=== PATIENT | female | born 1945 | race Caucasian/White ===

== ENCOUNTER 2016-11-09 17:05 | Emergency (ER) | payer MEDICARE, MEDICAID ==
[~2016-11-09] VITALS: Ht 154.9 cm; Wt 120.7 kg
[~2016-11-09 17:05] MED LIST: ALAVERT10 M1 PO; ALLOPURINOL100 MG PO; ASPIR-TRIN325 MG PO; BACTRIM DS 8001 TAB PO; BENADRYL 25MG C25 MG PO; BONIVA150 MG PO; BUMETANIDE2 MG PO; CARAFATE1 GM PO; CENTRUM SILVER1 TA1 PO; COLACE GENERIC100 MG PO; COMBIVENT INH14.7 GM IN; CYMBALTA60 MG PO; DIAZEPAM10 MG PO; DIAZEPAM2 M1 PO; DIAZEPAM5 MG PO; DICYCLOMINE HCL20 MG PO; DOXEPIN25 MG PO; FIORICET 325 MG1 TAB PO; FIORICET1 CAP PO; FLEXERIL10 MG PO; GABAPENTIN TAB600 MG PO; GABAPENTIN300 M1 PO; GLYBURIDE/METFO1 TA1 PO; IMDUR 30MG. TAB30 MG PO; INSULIN AS100 UNITS/ SC; IRON TABLETS325 MG PO; KLOR-CON M2020 MEQ PO; LANTUS INS100 UNITS/ SC; LASIX 40MG. TAB40 MG PO; LEVOTHYROXINE0.15 MG PO; LIDODERM 5% PA1 EACH TD; LISINOPRIL5 MG PO; LOTRIMIN1% TP; LOVAZA1 GM PO; MECLIZINE12.5 MG PO; MECLIZINE25 MG PO; MELOXICAM15 MG PO; METHOCARBAMOL500 MG PO; METOCLOPRAMIDE H5 MG PO; METOCLOPRAMIDE10 M4 PO; METOPROLOL50 MG PO; MIRALAX17 GM/PACK PO; NITROSTAT 0.4M0.4 MG SL; NORVASC 10MG. T10 MG PO; OXYCODONE-ACETA1 TAB PO; PERCOCET 5/3251 EACH PO; PREMARIN V0.625 MG/G VG; PRILOSEC20 M1 PO; PROMETHAZINE D118 ML PO; PROMETHAZINE HC25 M1 PO; Prilosec20 MG PO; ROBITUSSIN120 ML/BOT PO; SIMVASTATIN40 MG PO; SULAR40 MG PO; VELTASSA OR; ZOLOFT100 MG PO; [UNRECOGNIZED DRUG - OTHER] PO
--- OUTSIDE RECORDS SUMMARY | 2016-11-09 17:28 | External Medical Summary Rpt ---
Author Author , GEREMIAS Gleason SHALOMGAEL Address Unknown Phone Care Team Providers Care Pathology Collector Name Role Phone [facility] Unavailable Unavailable PHARMACY, [facility] REX DE LA CRUZ, JONO, Unavailable Unavailable LY VÁZQUEZ, Unavailable Unavailable LY ROD III, WESLEY, Unavailable Unavailable CHARI NESS III [facility] Unavailable Unavailable SERVICE, [facility] BLAINE JAUREGUI, Unavailable Unavailable BLAINE JAUREGUI [facility] Unavailable Unavailable MEDICAL EQUIPMENT, [facility] Unavailable Unavailable LLC, [facility] ABDULAZIZ LOPEZ, Unavailable Unavailable ABDULAZIZ LOPEZ RONDAL E, Unavailable Unavailable ELSY [facility] Unavailable Unavailable INC, [facility] Unavailable Unavailable INC, [facility] SUZY DRISCOLL HARVEY, Unavailable Unavailable SUZY [facility] Unavailable Unavailable [facility], [facility] Unavailable [facility]available SUPPLY, [facility] SHRUTHI LIN JR Unavailable Unavailable Felipe, SHRUTHI LIN JR, G J, MELTON, Unavailable Unavailable JACKI PEARSON, Unavailable Unavailable JACKI CHAVARRIA STEPHEN R, Unavailable Unavailable LY ABEL, VIRAL, CHANDLER, Unavailable Unavailable [facility]AL [facility] Unavailable Unavailable AM[facility]ULANCE SERVICE, [facility], Unavailable Unavailable [facility] Unavailable LLC, [facility] Salome Benitez MD, Unavailable Unavailable DIRK Gomez MD, Unavailable Unavailable DIRK FRENCH JEFFREY L, Unavailable Unavailable FEROZ PAIGE BABATUNDE O, Unavailable Unavailable RUPERTO WILKSATUNDE O [facility] Unavailable Unavailable HOSPITAL, [facility] Unavailable Unavailable [facility], [facility], Unavailable Unavailable [facility] FEROZ JIN, Unavailable Unavailable FEROZ JIN Purpose Continuity of Care Document - 06-26-2007 through 2016 Problems Code Diagnosis DOS Provider Status 2449 UNSPECIFIED 05-12-2009 [facility] [place] [address] DIAB W/O 04-28-2009 [facility] TYPE [facility] II/UNS NOT PSC STATED UNCNTRL 4660 ACUTE 04-28-2009 [facility] BRONCHITIS [facility] PSC 515 POSTINFLAMM 04-28-2009 [facility] FIBROSIS 21014 SHORTNESS 04-28-2009 [facility] OF BREATH [facility] PSC 7931 NONSPEC 04-28-2009 [facility] EXAM HOSPITAL BODY STRUCT LUNG FIELD 96817 OT NONSPC 04-28-2009 [facility]N F[facility]NG [facility] RAD&OTH EXM PSC BODY STRUCTURE 7862 COUGH 04-20-2009 [facility] PSC 4928 OTHER 03-22-2009 [facility] 496 CHRONIC 03-22-2009 [facility]AY [facility] NEC 4019 UNSPECIFIED 03-16-2009 [facility] N 5990 URINARY 03-16-2009 [facility] SITE NOT SPECIFIED 7226 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-16-2009 [facility] N [facility]ICAL INTERVERTEB GROUP RAL DISC SITE UNSPEC 7291 UNSPECIFIED 02-04-2009 [facility] MYOSITIS MED 58654 OTHER 02-04-2009 [facility] FATIGUE INTERNAL MED 75797 OTHER CHEST 02-04-2009 [facility] PAIN [facility] INTERNAL MED 07839 MORBID 01-29-2009 [facility] 490 BRONCHITIS 01-29-2009 [facility] ACUTE OR PROF SERV CHRONIC 86805 ESOPHAGEAL 01-29-2009 [facility]UX [facility] 5859 CHRONIC 01-29-2009 [facility] UNSPECIFIED ASSOCIATES 33302 OTHER 01-29-2009 [facility] [place] [address] CHEST PAIN 01-29-2009 [facility] PROF SERV 7906 OTHER 01-29-2009 [facility] BLOOD AMBULANCE CHEMISTRY SERVICE V5867 LONG-TERM 01-29-2009 [facility] USE OF [facility] INSULIN INC V5869 LONG-TERM 01-29-2009 [facility] (CURRENT) [facility] USE OF HOSPITAL OTHER PROF SERV MEDICATIONS 7245 UNSPECIFIED 01-19-2009 [facility] 77004 DIAB W/O 01-05-2009 DIABETES COMP TYPE I CARE CLUB [JUV] NOT LLC STATED UNCNTRL 32110 GENERALIZED 01-05-2009 [facility] OSTEOARTHRO LLC SIS UNSPECIFIED SITE 45262 OTHER 12-19-2008 [facility]RONIC [facility] PAIN INC 46672 NAUSEA WITH 12-19-2008 [facility] VOMITING [facility] INTERNAL MED 2766 FLUID 12-18-2008 [facility] 7336 TIETZES 12-18-2008 [facility] DIS[facility] V0481 NEED 12-18-2008 [facility] PROPHYLACTI [facility]ICAL C GROUP VACCINATION &INOCULATIO N FLU 22144 DIAB 11-19-2008 [facility] W/NEURO MEDICAL MANIFESTS GROUP TYPE II/UNS NOT UNCNTRL 3572 POLYNEUROPA 11-19-2008 [facility] THY IN MEDICAL DIABETES GROUP 6929 CONTACT 10-17-2008 [facility] DERMATITIS& MEDICAL OTHER GROUP ECZEMA DUE UNSPEC CAUSE 37689 PAIN IN 08-19-2008 [facility] JOINT, MEDICAL SHOULDER GROUP REGION 52348 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 2724 OTHER AND 06-05-2008 [facility] UNSPECIFIED [facility] INC HYPERLIPIDE NICHOLAS 5939 UNSPECIFIED 06-05-2008 [facility] DISORDER [employer] AND URETER 28860 PRECORDIAL 06-05-2008 [facility] PAIN [employer] 82142 OBSTRUCTIVE 02-08-2008 [facility] BRONCHITIS WITHOUT EXACERBAT 17903 OBST 02-08-2008 [facility] BRONCHITIS INTERNAL W/ACUTE MED BRONCHITIS 06385 WHEEZING 02-07-2008 [employer] 89299 MIGRAINE 01-26-2008 [facility] UNSP W/O FANCRU INTRACT W/O [employer] STATUS MIGRAINOSUS 7840 HEADACHE 01-26-2008 [facility] 94477 OBSTRUCTIVE 09-24-2007 [facility] 3540 CARPAL 08-07-2007 [facility] T[facility]EL [facility] SYNDROME [facility] 4619 ACUTE 08-07-2007 [facility] SINUSITIS, MEDICAL UNSPECIFIED GROUP 4779 ALLERGIC 08-07-2007 [facility] RHINITIS MEDICAL CAUSE GROUP UNSPECIFIED 96682 OSTEOARTHRO 08-07-2007 [facility] SIS UNSPEC MEDICAL WHETHER GROUP GEN/LOC LOWER LEG 412 OLD 06-28-2007 [facility]OCARDIAL [facility] INFARCTION INC 51538 COR 06-28-2007 [facility] UNSPEC INC TYPE VESSEL [place] T 33340 OSTEOARTHRO 06-28-2007 [facility] S UNSPEC [facility]OS[facility] WHETHER INC GEN/LOC UNSPEC SITE [id number] Type II [place] diabetes [facility] mellitus - Hospital poor control 244.9 Hypothyroid [facility] [id number] Obesity [facility] 530.81 Gastroesoph [place] ageal [facility] reflux Hospital disease [id number] Active [facility] 558.9 Gastroenter [place] itis [facility] 708.9 Acute [place] urticaria [facility] 780.57 Sleep apnea [facility] 786.50 [id number] Chronic [facility] D50.0 Iron deficiency anemia secondary to blood loss (chronic) D50.9 Iron deficiency anemia, unspecified D64.9 Anemia, unspecified E03.9 Hypothyroid ism, unspecified E08.42 Diabetes mellitus due to underlying condition with diabetic polyneuropa thy E11.21 Type 2 diabetes mellitus with diabetic nephropathy E11.3213 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, bilateral E11.40 Type 2 diabetes mellitus with diabetic neuropathy, unspecified E11.49 Type 2 diabetes mellitus with other diabetic neurologica l complicatio n E11.65 TYPE 2 DIABETES MELLITUS WITH HYPERGLYCEM IA E11.8 Type 2 diabetes mellitus with unspecified complicatio ns E11.9 Type 2 diabetes mellitus without complicatio ns E55.9 Vitamin D deficiency, unspecified E78.2 Mixed hyperlipide nicholas E87.5 HYPERKALEMI A F41.1 Generalized anxiety disorder G47.00 Insomnia, unspecified G89.29 Other chronic pain 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 H01.012 Ulcerative blepharitis right lower eyelid H01.014 Ulcerative blepharitis left upper eyelid H01.015 Ulcerative blepharitis left lower eyelid H25.813 Combined forms of age-related cataract, bilateral H52.7 Unspecified disorder of refraction I10 Essential (primary) hypertensio n I20.0 Unstable angina I24.9 ACUTE ISCHEMIC HEART DISEASE, UNSPECIFIED I50.33 Acute on chronic diastolic (congestive ) heart failure J18.9 PNEUMONIA, UNSPECIFIED ORGANISM J44.9 Chronic obstructive pulmonary disease, unspecified J45.909 Unspecified asthma, uncomplicat ed K29.70 GASTRITIS, UNSPECIFIED , WITHOUT BLEEDING K56.60 Unspecified intestinal obstruction K59.01 Slow transit constipatio n K59.09 Other constipatio n K90.9 Intestinal malabsorpti on, unspecified M17.0 Bilateral primary osteoarthri tis of knee M25.511 Pain in right shoulder M25.512 Pain in left shoulder M25.561 Pain in right knee M25.562 Pain in left knee M54.41 Lumbago with sciatica, right side M54.42 Lumbago with sciatica, left side N18.3 Chronic kidney disease, stage 3 (moderate) N18.9 CHRONIC KIDNEY DISEASE, UNSPECIFIED N28.9 DISORDER OF KIDNEY AND URETER, UNSPECIFIED N39.0 URINARY TRACT INFECTION, SITE NOT SPECIFIED R07.9 CHEST PAIN, UNSPECIFIED R10.9 UNSPECIFIED ABDOMINAL PAIN R11.2 Nausea with vomiting, unspecified R13.10 Dysphagia, unspecified R19.4 Change in bowel habit R55 SYNCOPE AND COLLAPSE R79.89 OTHER SPECIFIED ABNORMAL FINDINGS OF BLOOD CHEMISTRY R80.9 Proteinuria , unspecified 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 Allergies, Adverse Reactions, Alerts Type Allergy to substance Adverse Reaction to Substance Substance Reaction Severity NO KNOWN ALLERGIES Unknown Unknown Medications Na ND Rx Da Fi Fi Am Da Di Ph RX Ph St me C No te ll ll ou ys ag ar # ys at rm s nt no ma ic us Or Da si cy ia de te s n re d ON 00 08 0 No DA 64 -1 NS 16 0- Lo ET 08 20 ng RO 02 13 er N 5 HC Ac L ti 4 ve MG /2 ML AL UT 00 08 0 No OM 64 -1 ET 11 0- Lo RAMAN 49 20 ng ZI 53 13 er NE 5 Ac 25 ti ve MG /M L AM PU L TY 50 08 0 No LE 58 -1 NO 00 0- Lo L 45 20 ng EX 10 13 er -S 3 TR Ac ti 50 ve [address] ET FS 08 0 No -1 BL 0- Lo OO 20 ng D 13 er [place] Ac R ti ve HU 00 08 0 No MA 00 -1 LO 27 0- Lo G 51 20 ng 10 01 13 er 0 7 UN Ac IT ti S/ ve ML AL AM 51 08 0 No LO 07 -1 DI 90 0- Lo PI 45 20 ng NE 22 13 er 0 BE Ac SY ti LA ve TE 10 MG TA B FU 51 08 0 No RO 07 -1 SE 90 0- Lo PA 07 20 ng DE 32 13 er 0 40 Ac ti MG ve TA BL ET Me 68 08 0 No to 08 -1 cl 40 0- Lo op 09 20 ng ra 10 13 er mi 1 de Ac ti 10 ve MG Ta bl et ME 51 08 0 No TO 07 -1 UT 90 0- Lo OL 80 20 ng OL 12 13 er 0 TA Ac RT ti RA ve TE 50 MG TA B SY 00 08 0 No NT 07 -1 HR 47 0- Lo OI 06 20 ng D 91 13 er 15 1 0 Ac MC ti G ve TA BL ET PA 51 08 0 No NT 07 -1 OP 90 0- Lo RA 05 20 ng ZO 12 13 er LE 0 Ac SO ti D ve DR 40 MG TA B SO 00 08 0 No DI 40 -1 UM 97 0- Lo 98 20 ng CH 30 13 er LO 9 RI Ac DE ti ve 0. 9% SO SAMANTHA TI ON Sa 63 08 1 No li 80 -0 ne 70 9- Lo 10 20 ng Fl 07 13 er us 5 h Ac 10 ti ML ve Sy ri ng e Immunization Name Date Rout CVX Reac Dose Comm Prov Is Faci e tion ent ider Refu lity Give sed n IIV3 09-0 141 LUIS No [facility] 3-20 L, IT VACC 09 RICHARD MEDI INE L ANDREW SPLI GROU T P VIRU S 0.5 ML DOSA GE IM USE Vital Signs 11-24-2012 13:30 Name Value Interpretat Reference Comment ion Range Body 98.5 [degF] Temperature BP 56 mm[Hg] Diastolic BP Systolic 159 mm[Hg] Heart 82 /min Rate/Pulse Respiratory 22 /min Rate 11-24-2012 08:00 Name Value Interpretat Reference Comment ion Range O2% 96 % 11-24-2012 02:45 Name Value Interpretat Reference Comment ion Range Height 154.94 cm Weight 117.227 kg Measured 11-23-2012 22:23 Name Value Interpretat Reference Comment ion Range Body 99.1 [degF] Temperature BP 77 mm[Hg] Diastolic BP Systolic 163 mm[Hg] Heart 131 /min Rate/Pulse O2% 98 % Respiratory 16 /min Rate Weight 0 [oz_av] Measured 06-14-2012 18:35 Name Value Interpretat Reference Comment ion Range BP 82 mm[Hg] Diastolic BP Systolic 116 mm[Hg] Heart 67 /min Rate/Pulse O2% 98 % Respiratory 20 /min Rate 06-14-2012 17:52 Name Value Interpretat Reference Comment ion Range BP 64 mm[Hg] Diastolic BP Systolic 136 mm[Hg] 06-14-2012 17:09 Name Value Interpretat Reference Comment ion Range Heart 70 /min Rate/Pulse O2% 96 % Respiratory 20 /min Rate Results Labs Lab Lab Date Result Refere Interp Status Commen Order Detail nces retati t Range on Glucose BldC Glucomtr-nc (11-24-2012 11:58) Glucose 08-10-2 187 70-110 complet BldC 013 mg/dl ed Glucomt 11:58 r-mCnc Glucose BldC Glucomtr-nc (11-24-2012 06:13) Glucose 08-10-2 308 70-110 High complet BldC 013 mg/dl alert ed Glucomt 06:13 r-mCnc URINALYSIS/COMPLETE (11-24-2012 02:20) URINE -10-2 YELLOW YELLOW complet COLOR 013 ed 02:20 URINE -10-2 CLEAR CLEAR complet APPEARA 013 ed NCE 02:20 URINE 10-2 2+ NEG complet GLUCOSE 013 ed - 02:20 DIPSTIC K URINE 10-2 NEGATIV NEG complet BILIRUB 013 E ed IN - 02:20 DIPSTIC K URINE 10-2 NEGATIV NEG complet KETONE 013 E mg/dL ed 02:20 URINE 10-2 1.025 1.005-1 complet SPECIFI 013 UNK .030 ed C 02:20 GRAVITY URINE 10-2 NEGATIV NEG complet BLOOD 013 E ed 02:20 URINE -10-2 6.0 UNK 5.0-8.5 complet PH 013 ed 02:20 URINE 10-2 1+ NEG complet PROTEIN 013 mg/dL ed - 02:20 DIPSTIC K URINE 10-2 0.2 NEG complet UROBILI 013 E.U./dL ed NOGEN - 02:20 DIPSTIC K URINE 08-10-2 NEGATIV NEG complet NITRATE 013 E ed - 02:20 DIPSTIC K URINE 1+ NEG complet LEUK 013 ed ESTERAS 02:20 E URINE 10-20 O complet WBC 013 wbc/hpf ed 02:20 URINE 10-20 0-5 complet SQUAMOU 013 #/hpf ed S CELLS 02:20 URINE TRACE O complet BACTERI 013 ed A 02:20 URINE TRACE NONE complet AMORPH 013 ed SEDIMEN 02:20 T COMPREHENSIVE METABOLIC PANEL (11-23-2012 23:30) Glucose 369 74-106 complet 013 mg/dL ed Bld-mCn 23:30 c BUN 25 7-18 complet Bld-mCn 013 mg/dL ed c 23:30 Creat 1.9 0.6-1.0 complet SerPl-m 013 mg/dL ed Cnc 23:30 ESTIMAT 54 50-200 complet ED 013 ML/MIN ed CREATIN 23:30 INE CLEARAN CE GFR 26 59- complet (ESTIMA 013 ML/MIN ed MARLYN) 23:30 Sodium 136 136-145 complet SerPl-s 013 mmoL/L ed Cnc 23:30 Potassi 4.0 3.5-5.1 complet um 013 mmoL/L ed SerPl-s 23:30 Cnc Chlorid 95 98-107 complet e 013 mmoL/L ed SerPl-s 23:30 Cnc CO2 25 21.0-32 complet SerPl-s 013 mmoL/L .0 ed Cnc 23:30 Calcium 9.1 8.5-10. complet 013 mg/dL 1 ed SerPl-m 23:30 Cnc Prot 8.0 6.4-8.2 complet SerPl-m 013 gm/dL ed Cnc 23:30 Albumin 3.5 3.4-5.0 complet 013 gm/dL ed SerPl-m 23:30 Cnc Globuli 4.5 1.3-3.2 complet n 013 gm/dL ed Ser-mCn 23:30 c Albumin 08-09-2 0.8 UNK 1.1-1.8 complet /Glob 013 ed SerPl-m 23:30 Rto Bilirub 0.3 0.2-1.0 complet 013 mg/dL ed SerPl-m 23:30 Cnc AST 25 U/L 15-37 complet SerPl-c 013 ed Cnc 23:30 ALT 38 U/L 30-65 complet SerPl-c 013 ed Cnc 23:30 ALP 152 U/L 50-136 complet SerPl-c 013 ed Cnc 23:30 CBC with AUTO DIFF (11-23-2012 23:30) WBC # 09-2 11.5 4.8-10. complet Bld 013 K/MM3 8 ed Auto 23:30 RBC # 11-23-2 4.28 4.2-5.4 complet Bld 013 M/mm3 ed Auto 23:30 Hgb 12.5 12.2-16 complet Bld-mCn 013 g/dL .2 ed c 23:30 Hct Fr 39.1 % 37.0-47 complet Bld 013 .0 ed 23:30 MCV RBC 91.5 fl 82.2-97 complet 013 .8 ed 23:30 MCH RBC 11-23- 29.1 pg 27-31.2 complet Qn 013 ed Auto 23:30 MEAN 31.8 31.8-35 complet CORPUSC 013 g/dl .4 ed ULAR 23:30 HGB CONC RDW RBC 15.0 % 11.5-17 complet Auto 013 .5 ed 23:30 Platele 346 142-424 complet t Bld 013 K/mm3 ed Ql 23:30 Manual MEAN 7.3 fl 7.4-10. complet PLATELE 013 4 ed T 23:30 VOLUME Granulo 74.7 % 37.0-80 complet cytes 013 .0 ed Fr Bld 23:30 Auto LYMPH % 20.0 % 10-50.0 complet 013 ed 23:30 Monocyt 4.4 % 1.7-9.3 complet es Fr 013 ed Bld 23:30 Auto Eosinop 08-09-2 0.8 % 0.1-12. complet hil Fr 013 0 ed Bld 23:30 Auto Basophi 08-09-2 0.1 % 0.1-2.0 complet ls Fr 013 ed Bld 23:30 Auto Granulo --2 8.6 1.8-7.8 complet cytes # 013 K/mm3 ed Bld 23:30 Auto Lymphoc --2 2.3 0.7-4.5 complet ytes Fr 013 K/mm3 ed Bld 23:30 Auto Monocyt 08-09-2 0.5 0.1-1.0 complet es # 013 K/mm3 ed Bld 23:30 Auto Eosinop -09-2 0.1 0.0-0.4 complet hil # 013 K/mm3 ed Bld 23:30 Auto Basophi 08-09-2 0.0 0-0.2 complet ls # 013 K/MM3 ed Bld 23:30 Auto BASIC METABOLIC PANEL (06-14-2012 16:55) Glucose 160 74-106 complet 013 mg/dL ed Bld-mCn 16:55 c BUN 21 7-18 complet Bld-mCn 013 mg/dL ed c 16:55 Creat 1.5 0.6-1.0 complet SerPl-m 013 mg/dL ed Cnc 16:55 ESTIMAT 70 50-200 complet ED 013 ML/MIN ed CREATIN 16:55 INE CLEARAN CE GFR 35 59- complet (ESTIMA 013 ML/MIN ed MARLYN) 16:55 Sodium 141 136-145 complet SerPl-s 013 mmoL/L ed Cnc 16:55 Potassi 4.4 3.5-5.1 complet um 013 mmoL/L ed SerPl-s 16:55 Cnc Chlorid 103 98-107 complet e 013 mmoL/L ed SerPl-s 16:55 Cnc CO2 31 21.0-32 complet SerPl-s 013 mmoL/L .0 ed Cnc 16:55 Calcium 9.0 8.5-10. complet 013 mg/dL 1 ed SerPl-m 16:55 Cnc CBC with AUTO DIFF (06-14-2012 16:55) WBC # 02-28-2 9.2 4.8-10. complet Bld 013 K/MM3 8 ed Auto 16:55 RBC # 02-28-2 4.16 4.2-5.4 complet Bld 013 M/mm3 ed Auto 16:55 Hgb --2 12.1 12.2-16 complet Bld-mCn 013 g/dL .2 ed c 16:55 Hct Fr 06-14-2 38.2 % 37.0-47 complet Bld 013 .0 ed 16:55 MCV RBC 2 91.8 fl 82.2-97 complet 013 .8 ed 16:55 MCH RBC 2 29.1 pg 27-31.2 complet Qn 013 ed Auto 16:55 MEAN 2 31.7 31.8-35 complet CORPUSC 013 g/dl .4 ed ULAR 16:55 HGB CONC RDW RBC 06-14-2 15.9 % 11.5-17 complet Auto 013 .5 ed 16:55 Platele 06-14-2 331 142-424 complet t Bld 013 K/mm3 ed Ql 16:55 Manual MEAN 2 7.8 fl 7.4-10. complet PLATELE 013 4 ed T 16:55 VOLUME Granulo 06-14-2 66.9 % 37.0-80 complet cytes 013 .0 ed Fr Bld 16:55 Auto LYMPH % 06-14-2 26.8 % 10-50.0 complet 013 ed 16:55 Monocyt 06-14-2 4.2 % 1.7-9.3 complet es Fr 013 ed Bld 16:55 Auto Eosinop --2 1.7 % 0.1-12. complet hil Fr 013 0 ed Bld 16:55 Auto Basophi --2 0.4 % 0.1-2.0 complet ls Fr 013 ed Bld 16:55 Auto Granulo 02-28-2 6.2 1.8-7.8 complet cytes # 013 K/mm3 ed Bld 16:55 Auto Lymphoc -28-2 2.5 0.7-4.5 complet ytes Fr 013 K/mm3 ed Bld 16:55 Auto Monocyt --2 0.4 0.1-1.0 complet es # 013 K/mm3 ed Bld 16:55 Auto Eosinop 06-14-2 0.2 0.0-0.4 complet hil # 013 K/mm3 ed Bld 16:55 Auto Basophi 28-2 0.0 0-0.2 complet ls # 013 K/MM3 ed Bld 16:55 Auto Procedures Procedure DOS Code Location Performer Comment COLLECTIO [address] N [facility] 0 [facility] VENIPUNCT MEDICALCE MEDICALCE URE NTER NTER BASIC [address] METABOLIC 0 ALEX ALEX PANEL CALCIUM MEDICAL[place] [address] FREE 0 ALEX ALEX THYROXINE [place] [address] THYROID 0 ALEX ALEX STIMULATI NG MEDICALCE MEDICALCE HORMONE NTER NTER TSH BLOOD [address] COUNT 0 ALEX ALEX COMPLETE AUTO&AUTO MEDICALCE MEDICALCE DIFRNTL NTER NTER WBC COLLECTIO [address] N VENOUS 0 [facility] VENIPUNCT URE CT THORAX 06554 RADIOLOGY SCHMITTER 0 FEROZ W/DANA ASSOCIATE L T S [facility] MATERIAL CREATININ [address] E BLOOD 0 [facility] RADIOLOGI 69772 RADIOLOGY [place] ABEL EXAM 0 LY R CHEST 2 ASSOCIATE VIEWS S PSC FRONTAL&L ATERAL O2 CONC 1 E1390 PULMONARY PULMONARY DEL PORT 9 [facility]ERS PARTNERS 85%/>02 LLC LLC CONC AT [facility] FLW RATE PRTBLE E0431 PULMONARY PULMONARY GASEOUS 9 PARTNERS PARTNERS O2 SYS LLC LLC RENT; FLWMTR HUMIDFR&M ASK INJECTION J0696 [facility], 9 MEDICAL VIRAL CEFTRIAXO GROUP NE SODIUM PER 250 MG THERAPEUT 57610 [facility] CHANDLER, IC 9 MEDICAL VIRAL PROPHYLAC GROUP TIC/DX INJECTION SUBQ/IM O2 CONC 1 11-06-200 E1390 PULMONARY PULMONARY DEL PORT 9 PARTNERS PARTNERS 85%/>[address] [facility] CONC AT [facility] FLW RATE THERAPEUT [address] ST ARTEAGA, IC 9 ALEX VIRAL PROPHYLAC TIC/DX PHYSICIAN INJECTION S SUBQ/IM GLUC BLD 18992 [facility] G[facility]IA GLUC MNTR 9 [facility]OSP DEV INC INC CLEARED FDA SPEC HOME USE PRESSURIZ 58457 [facility] GARCIA ED/NONPRE 9 [facility] SSURIZED INC INC INHALATIO N TREATMENT NONINVASI 91512 [facility]IA VE 9 [facility] HOSP EAR/PULSE INC INC OXIMETRY SINGLE DETER NONINVASI 92822 [facility] GARCIA VE 9 [facility] EAR/PULSE INC INC OXIMETRY SINGLE DETER THERAPEUT 29033 [facility] GARCIA IC 9 [facility] HOSP INJECTION INC [place] [address] [facility] GARCIA INFUSION 9 [facility] HOSP THERAPY/P INC INC ROPHYLAXI S /DX 1ST TO 1 HR PRESSURIZ 10362 [facility] GARCIA ED/NONPRE 9 [facility] SSURIZED INC INC INHALATIO N TREATMENT SMR PRIM 64576 [facility] GARCIA SRC 9 [facility] HOSP GRAM/GIEM INC INC SA STAIN BCT FUNGI/[place] [address] [facility] G[facility] TROPONIN 9 [facility] HOSP QUANTITAT INC INC COLE BLOOD 83136 [facility] GARCIA COUNT 9 [facility] COMPLETE INC INC AUTO&AUTO DIFRNTL WBC GLUC BLD 12010 [facility] GARCIA GLUC MNTR 9 [facility] DEV INC INC CLEARED FDA SPEC HOME USE ECG 12389 [facility] RODRIGUEZMISusy ROUTINE 9 [facility] SHRUTHI W/LEAST PROF SERV 12 LDS I&R ONLY CUL BACT 53075 [facility] GARCIA XCPT 9 [facility] HOSP URINE INC INC BLOOD/[place] [address] [facility] GARCIA INFUSION 9 [facility] HOSP THERAPY INC INC PROPHYLAX IS/DX EA HOUR CREATINE 46256 [facility] GARCIA KINASE MB 9 [facility] FRACTION INC INC ONLY SPUTUM 51254 [facility] GARCIA OBTAINING 9 [facility] SPEC INC INC AEROSOL INDUCED TX SPX ECG 84841 RAD[facility] GARCIA ROUTINE 9 [facility] ECG INC INC W/LEAST 12 LDS TRCG ONLY W/O I&R BASIC 87074 RAD[facility] GARCIA METABOLIC 9 [facility] PANEL INC INC CALCIUM TOTAL CREATINE 00478 RAD[facility] GARCIA KINASE 9 [facility]OS[facility] TOTAL INC INC COLLECTIO 08019 [facility] N VENOUS 9 [facility] BLOOD INC INC VENIPUNCT URE CREATINE 80774 [facility] KINASE 9 [facility] TOTAL INC INC BASIC 22552 [facility] G[facility] METABOLIC 9 [facility] PANEL INC INC CALCIUM TOTAL RADIOLOGI 84797 [facility] Cat[facility] JAUREGUI 9 MEDICAL BLAINE EXAMINATI IMAGING ON CHEST ASSOCIATE SINGLE S VIEW FRONTAL CREATINE 48011 RADHA GARCIA KINASE MB 9 [facility] FRACTION INC INC ONLY ECG 81114 RADHA GARCIA ROUTINE 9 [facility] ECG INC INC W/LEAST 12 LDS TRCG ONLY W/O I&R IAADI 46613 RAD[facility] GARCIA INFLUENZA 9 [facility] B VIRUS INC INC IAADI 28515 RAD[facility] G[facility] INFFLUENZ 9 [facility] A A VIRUS INC INC HOSPITAL [id number] RAD[facility] GARC[facility] OBSERVATI 9 [facility] ON INC INC SERVICE PER HOUR AMB A0427 [facility] SERVICE 9 [facility] AMB[facility] AMBULANCE EMERGENCY SERVICE SERVICE TRANSPORT LEVEL 1 ECG 34473 TOMASZ HORVATHEY, ROUTINE 9 EMERGENCY ABDULAZIZ S ECG SERVICES W/LEAST 12 LDS ASSOCIATE [place] [address] RAD[facility] GARCIA TROPONIN 9 [facility] QUANTITAT INC INC COLE NATRIURET 14135 [facility] G[facility] IC 9 [facility] PEPTIDE INC INC BLOOD 91314 RAD[facility] GARCIA COUNT 9 [facility] COMPLETE INC INC AUTO&AUTO DIFRNTL WBC GROUND A0425 [facility] [place]ISS MILEAGE 9 CO CO PER AMBULANCE AMBULANCE STATUTE SERVICE SERVICE MILE PRTBLE E0431 PULMONARY PULMONARY GASEOUS 9 PARTNERS PARTNERS [employer] RENT; FLWMTR HUMIDFR&M ASK O2 CONC 1 E1390 PULMONARY PULMONARY DEL PORT 9 PARTNERS PARTNERS 85%/>02 LLC [facility] CONC AT [facility] [place] [address] FREE 9 ALEX ALEX THYROXINE [place] [address] THYROID 9 ALEX ALEX STIMULATI NG MEDICALCE MEDICALCE HORMONE NTER NTER TSH HEMOGLOBI [address] N 9 ALEX ALEX GLYCOSYLA MARLYN A1C MEDICALCE MEDICALCE NTER NTER BLD GLU A4253 [facility] TEST/REAG 9 MEDICAL MEDICAL T STRIPS SUPPLY SUPPLY HOME BLD GLU MON-50 NORMAL A4256 DIABETES DIABETES LOW AND 9 [facility] CALIBRATO R SOLUTION/ CHIPS LANCETS A4259 DIABETES DIABETES PER BOX 9 CARE CL[facility] CARE CL[facility] OF 100 [facility] LLC BLD GLU A4253 DIABETES DIABETES TEST/REAG 9 C[facility] CARE CLUB T STRIPS [facility] LLC HOME BLD GLU MON-50 REPL ANGELIC A4235 DIABETES DIABETES LITHIUM 9 CARE CLUB CARE CLUB MED NECES LLC LLC CHANTAL BG MON OWN PT EA OBSERVATI [id number] [place] ON CARE 9 [facility], DISCHARGE INTERNAL SHRUTHI [facility] GLUC BLD 41054 RADHA GARCIA GLUC MNTR 9 [facility] DEV INC INC CLEARED FDA SPEC HOME USE NONINVASI 39338 RADHA GARCIA VE 9 [facility] EAR/PULSE INC INC OXIMETRY SINGLE DETER PRESSURIZ 90411 RADHA GARCIA ED/NONPRE 9 [facility] SSURIZED INC INC INHALATIO N TREATMENT PRESSURIZ 68696 RADHA GARCIA ED/NONPRE 9 [facility] SSURIZED INC INC INHALATIO N TREATMENT BLOOD 58474 RADHA GARCIA COUNT 9 [facility] COMPLETE INC INC AUTO&AUTO DIFRNTL WBC THERAPEUT 12463 RADHA RADHA IC 9 [facility] INJECTION INC INC IV PUSH EACH NEW DRUG INITIAL 12317 [place] OBSERVATI 9 [facility]/DAY MED 30 [place] [address] RADHA ELIASON TROPONIN 9 [facility] HOSP QUANTITAT INC INC COLE ECG 74361 RADHA LIN ROUTINE 9 [facility] ECG [facility]OSP[facility] W/LEAST PROF SERV 12 LDS I&R ONLY GLUC BLD 02411 RADHA ELIASON GLUC MNTR 9 [facility] DEV INC INC CLEARED FDA SPEC HOME USE HOSPITAL [id number] RADHA GARCIA OBSERVATI 9 [facility] HOSP ON INC INC SERVICE PER HOUR THER 54288 RADHA GARCIA PROPH/DX 9 [facility] HOSP NJX IV INC INC PUSH SINGLE/1S T SBST/DRUG ECG 57659 RADHA GARCIA ROUTINE 9 [facility] ECG INC INC W/LEAST 12 LDS TRCG ONLY W/O I&R CREATINE 79078 RADHA GARCIA KINASE MB 9 [facility] FRACTION INC INC ONLY BASIC 31983 RADHA GARCIA METABOLIC 9 [facility] HOSP PANEL INC INC CALCIUM TOTAL RADIOLOGI 42664 [place] Catrachita JAUREGUI 9 MEDICAL BLAINE EXAMINATI IMAGING ON CHEST ASSOCIATE SINGLE S VIEW FRONTAL COLLECTIO 36822 RADHA GARCIA N VENOUS 9 [facility] BLOOD INC INC VENIPUNCT URE CREATINE 52585 RADHA GARCIA KINASE 9 [facility] TOTAL INC INC BILIRUBIN [address] [facility] 9 [facility] 13506 [place] ARTEAGA, ROUTINE 9 MEDICAL VIRAL ECG GROUP W/LEAST 12 LDS W/I&R COLLECTIO 37399 [facility] ARTEAGA, N VENOUS 9 MEDICAL VIRAL BLOOD GROUP VENIPUNCT URE COMPREHEN [address] SIVE 9 ALEX ALEX METABOLIC PANEL MEDICALCE MEDICALCE NTER NTER THERAPEUT 14636 CARLOS CHANDLER, IC 9 MEDICAL VIRAL PROPHYLAC GROUP TIC/DX INJECTION SUBQ/IM ADMINISTR G0008 CARLOS ARTEAGA, ATION OF 9 MEDICAL VIRAL INFLUENZA GROUP VIRUS VACCINE INJECTION J1040 CARLOS ARTEAGA, 9 MEDICAL VIRAL METHYLPRE GROUP DNISOLONE ACETATE 80 MG RADIOLOGI 35984 RADIOLOGY GROVER C EXAM 9 III, CHEST 2 ASSOCIATE CHARI GLOVER S [facility] FRONTAL&[place] [address] THYROID 9 ALEX ALEX STIMULATI NG MEDICALCE MEDICALCE HORMONE NTER NTER TSH IIV3 10227 [facility], VACCINE 9 MEDICAL VIRAL SPLIT GROUP VIRUS 0.5 ML DOSAGE IM USE ELECTRIC E0215 DIABETES DIABETES HEAT PAD 9 CARE CLUB CARE [facility] [employer] THERAPEUT 80763 CARLOS ARTEAGA, IC 9 MEDICAL VIRAL PROPHYLAC GROUP TIC/DX INJECTION SUBQ/IM SPRING-PO A4258 LIBERTY LIBERTY WERED 9 MEDICAL STUDIO ARTIST SUPPLY SUPPLY FOR LANCET EACH BLD GLU A4253 LIBERTY LIBERTY TEST/REAG 9 MEDICAL MEDICAL T STRIPS SUPPLY SUPPLY HOME BLD GLU MON-50 NORMAL A4256 LIBERTY LIBERTY LOW AND 9 MEDICAL MEDICAL HIGH SUPPLY SUPPLY CALIBRATO R SOLUTION/ CHIPS BLOOD [address] COUNT 9 ALEX ALEX COMPLETE AUTO&AUTO MEDICALCE MEDICALCE DIFRNTL NTER NTER WBC HEMOGLOBI [address] N 9 ALEX ALEX GLYCOSYLA MARLYN A1C MEDICALCE MEDICALCE NTER NTER INJECTION J1040 Ellis PRECIADO 9 MEDICAL J METHYLPRE GROUP DNISOLONE ACETATE 80 MG THERAPEUT 49605 Ellis PRECIADO IC 9 MEDICAL J PROPHYLAC GROUP TIC/DX INJECTION SUBQ/[place] [address] FREE 9 ALEX ALEX THYROXINE [place] [address] ST THYROID 9 [facility] STIMULATI NG MEDICALRAJINDER MEDICALCE HORMONE NTER NTER TSH LIPID [address] PANEL 9 ALEXLUPE JOHNSON MEDICALCE MEDICALCE NTER NTER COMPREHEN [address] SIVE 9 ALEX ALEX METABOLIC PANEL MEDICALCE MEDICALCE NTER NTER BILIRUBIN [address] DIRECT 9 ALEX ALEX MEDICALCE MEDICALCE NTER NTER CREATINE 70240 RADHA GARCIA KINASE 9 [facility] TOTAL INC INC COLLECTIO 97051 RADHA GARCIA N VENOUS 9 [facility] BLOOD INC INC VENIPUNCT URE RADIOLOGI 77069 RADHA GARCIA C 9 [facility] EXAMINATI INC INC ON CHEST SINGLE VIEW FRONTAL BASIC 99387 RADHA GARCIA METABOLIC 9 [facility] PANEL INC INC CALCIUM TOTAL ECG 51988 RADHA GARCIA ROUTINE 9 [facility] ECG INC INC W/LEAST 12 LDS TRCG ONLY W/O I&R HOSPITAL G0378 RADHA GARCIA OBSERVATI 9 [facility] ON INC INC SERVICE PER HOUR THER 11491 RADHA GARCIA PROPH/DX 9 [facility] NJX IV INC INC PUSH SINGLE/1S T SBST/DRUG CREATINE 74974 RADHA GARCIA KINASE MB 9 [facility] FRACTION INC INC ONLY GLUC BLD 63923 RADHA GARCIA GLUC MNTR 9 [facility] DEV INC INC CLEARED FDA SPEC HOME USE ECG 74891 RADHA DRISCOLL, ROUTINE 9 [facility] H[facility]PITAL W/LEAST PROF SERV 12 LDS I&R ONLY BLOOD 24084 RADHA GARCIA COUNT 9 [facility] COMPLETE INC INC AUTO&[place] [address] RADHA GARCIA TROPONIN 9 [facility] QUANTITAT INC INC COLE THERAPEUT 97258 RADHA GARCIA IC 9 [facility] INJECTION INC INC IV PUSH EACH NEW DRUG INITIAL 75992 JOSE ALFREDO HDEZ 9 INDIRA Navarro ON INTERNAL CARE/DAY MED 30 MINUTES PORTABLE E0443 PULMONARY PULMONARY O2 9 PART[facility]ERS PART[employer] GASEOUS 1 MO SUPPLY=1 UNIT O2 CONC 1 E1390 PULMONARY PULMONARY DEL PORT 8 PARTNERS PARTNERS 85%/>02 LLC LLC CONC AT PRSC FLW RATE PRTBLE E0431 PULMONARY PULMONARY GASEOUS 8 PARTNERS PARTNERS [employer] [facility] RENT; FLWMTR HUMIDFR&M ASK BLD GLU A4253 AM MED AM MED TEST/REAG 8 DIRECT DIRECT T [employer] [facility] HOME BLD PHARMACY PHARMACY GLU MON-50 LANCETS A4259 AM MED AM MED PER BOX 8 DIRECT DIRECT OF 100 LLC LLC PHARMACY PHARMACY PRTBLE E0431 PULMONARY PULMONARY GASEOUS 8 PARTNERS PARTNERS [employer] RENT; FLWMTR HUMIDFR&M ASK O2 CONC 1 E1390 PULMONARY PULMONARY DEL PORT 8 PARTNERS PARTNERS 85%/>02 LLC LLC CONC AT PRSC FLW RATE CREATINE 44370 RADHA GARCIA KINASE MB 8 [facility] HOSP FRACTION INC INC ONLY OBSERVATI 19101 [place]OLA ON CARE 8 [facility] A DISCHARGE INTERNAL MED MANAGEMEN T ECG 24077 RADHA GARCIA ROUTINE 8 [facility] HOSP ECG INC INC W/LEAST 12 LDS TRCG ONLY W/O I&R COLLECTIO 32443 RADHA GARCIA N VENOUS 8 [facility]PL[facility]ED BY [facility] BLOOD INC INC VENIPUNCT URE ADMN SET A7005 PULMO PULMO W/SM VOL 8 DOSE DOSE NONFILTR PHARMACY PHARMACY NEBULIZR NON-DISPB L CREATINE 99409 RADHA GARCIA KINASE 8 [facility] HOSP TOTAL INC INC ALBUTEROL J7620 PULMO PULMO TO 2.5 8 DOSE DOSE MG & PHARMACY PHARMACY IPRATROPI [place] 0.5 [place] [address] RADHA GARCIA TROPONIN 8 [facility] HOSP QUANTITAT INC INC COLE ECG 22922 RADHA DRISCOLL, ROUTINE 8 [facility] HOSPITAL W/LEAST PROF SERV 12 LDS I&R ONLY GLUC BLD 46844 RADHA GARCIA GLUC MNTR 8 [facility] DEV INC INC CLEARED FDA SPEC HOME USE PHRM Q0514 PULMO PULMO DISPENSIN 8 DOSE DOSE G FEE PHARMACY PHARMACY INHALATIO N RX; PER 90 DAYS GLUC BLD 47371 RADHA GARCIA GLUC MNTR 8 [facility] DEV INC INC CLEARED FDA SPEC HOME USE NATRIURET 28651 RADHA GARCIA IC 8 [facility] HOSP PEPTIDE INC INC ECG 93110 RADHA DRISCOLL ROUTINE 8 [facility] W/LEAST PROF SERV 12 LDS I&R ONLY INITIAL 43245 [place] OBSERVATI 8 [facility] ON INTERNAL CARE/DAY MED 30 MINUTES NONINVASI 20240 RADHA GARCIA VE 8 [facility] HOSP EAR/PULSE INC [place] [address] RADHA GARCIA TROPONIN 8 [facility] HOSP QUANTITAT INC INC COLE BLOOD 58721 RADHA GARCIA COUNT 8 [facility]P COMPLETE INC INC AUTO&AUTO DIFRNTL WBC CULTURE 99629 RADHA GARCIA BACTERIAL 8 [facility]P BLOOD INC INC AEROBIC W/ID ISOLATES PRESSURIZ 54598 RADHA GARCIA ED/NONPRE 8 [facility] H[facility]P SSURIZED INC INC INHALATIO N TREATMENT CREATINE 10627 RADHA GARCIA KINASE 8 [facility] HOSP TOTAL INC INC THER 11248 RADHA GARCIA PROPH/DX 8 [facility]P NJX IV INC INC PUSH 1ST SBST/DRUG COLLECTIO 97979 RADHA GARCIA N VENOUS 8 [facility]P BLOOD INC INC VENIPUNCT URE INJECTION J2405 RADHA GARCIA 8 [facility] HOSP ONDANSETR INC INC ON HCL PER 1 MG ECG 78964 RADHA GARCIA ROUTINE 8 [facility] ECG INC INC W/LEAST 12 LDS TRCG ONLY W/O I&R BASIC 96059 RADHA GARCIA METABOLIC 8 [facility] PANEL INC INC CALCIUM TOTAL RADIOLOGI 69164 RADHA GARCIA C 8 [facility] HOSP EXAMINATI INC INC ON CHEST SINGLE VIEW FRONTAL THER 49716 RADHA GARCIA PROPH/DX 8 [facility] NJX EA INC INC SEQL IV PUSH SBST/DRUG HOSPITAL G0378 RADHA GARCIA OBSERVATI 8 [facility] ON INC INC SERVICE PER HOUR CREATINE 37943 RADHA RADHA KINASE MB 8 [facility] FRACTION INC INC ONLY O2 CONC 1 E1390 PULMONARY PULMONARY DEL PORT 8 PARTNERS PARTNERS 85%/>02 LLC LLC CONC AT PRSC FLW RATE 3D 77560 RADHA GARCIA RENDERING 8 [facility] W/INTERP INC INC & [place] [address] [facility] CHAVARRIA, HEAD/BRAI 8 MEDICAL JACKI Baron N W/O IMAGING CONTRAST ASSOCIATE MATERIAL S THER 68019 RADHA GARCIA PROPH/DX 8 [facility] NJX INC INC SUBQ/IM PRTBLE E0431 PULMONARY PULMONARY GASEOUS 8 PART[facility]ERS [facility] [employer] RENT; FLWMTR HUMIDFR&M ASK ECG 37760 [place] SARAFF, ROUTINE 8 [facility] Y ECG VASCULAR W/LEAST ASSOC 12 LDS W/I&R DOPPLER 17222 RADHA LIN ECHOCARD 8 [facility] SHRUTHI Felipe WAVE PROF SERV W/SPECTRA L DISPLAY ECHO 32937 RADHA LIN TRANSTHOR 8 [facility] R-T 2D [facility] W/WO PROF SERV M-MODE REC COMP DOP 05165 RADHA LIN ECHOCARD 8 [facility] SHRUTHI F FLOW PROF SERV VELOCITY MAPPING RADIOLOGI 72840 [facility] C 8 MEDICAL MEDICAL EXAMINATI IMAGING IMAGING ON CHEST ASSOCIATE ASSOCIATE SINGLE S S VIEW FRONTAL RADEX 34275 [place] AURA, SHOULDER 8 MEDICAL JACKI P COMPLETE IMAGING MINIMUM 2 ASSOCIATE VIEWS S ECG 19823 RADHA LIN ROUTINE 8 [facility] SHRUTHI W/LEAST PROF SERV 12 LDS I&R ONLY ECG 45940 RADHA LIN ROUTINE 8 [facility] W/LEAST PROF SERV 12 LDS I&R ONLY PRTBLE E0431 PULMONARY PULMONARY GASEOUS 8 PARTNERS PARTNERS [employer] RENT; FLWMTR HUMIDFR&M ASK O2 CONC 1 E1390 PULMONARY PULMONARY DEL PORT 8 PARTNERS PARTNERS 85%/>02 LLC LLC CONC AT PRSC FLW RATE FILTER A7039 [facility] NON 8 HOME HOME DISPBL MEDICAL MEDICAL USED EQUIPMENT EQUIPMENT W/POS ARWAY PRESS DEVICE THER 00269 RADHA GARCIA PROPH/DX 8 [facility] NJX INC INC SUBQ/IM NASL A7034 [place] INTRFCE 8 HOME HOME POS [facility] MEDICAL MEDICAL PRSS EQUIPMENT EQUIPMENT DEVC W/WO HEAD STRAP HEADGEAR A7035 [place] USED 8 HOME HOME W/POSITIV MEDICAL MEDICAL E AIRWAY EQUIPMENT EQUIPMENT PRESSURE DEVICE TUBING A7037 [place] USED WITH 8 HOME HOME POSITIVE MEDICAL MEDICAL AIRWAY EQUIPMENT EQUIPMENT PRESSURE DEVICE THER 56696 RADHA GARCIA PROPH/DX 8 [facility] NJX EA INC INC SEQL IV PUSH SBST/DRUG CREATINE 94126 RADHA GARCIA KINASE 8 [facility] TOTAL INC INC ECG 95210 RADHA GARCIA ROUTINE 8 [facility] ECG INC INC W/LEAST 12 LDS TRCG ONLY W/O I&R IV NFS 96809 RADHA GARCIA THER 8 [facility] PROPH/DX INC INC 1ST >1 HR RADIOLOGI 50186 RADHA GARCIA C 8 [facility] EXAMINATI INC INC ON CHEST SINGLE VIEW FRONTAL CREATINE 15138 RADHA GARCIA KINASE MB 8 [facility] FRACTION INC INC ONLY BASIC 64059 RADHA GARCIA METABOLIC 8 [facility] [place] [address] RADHA GARCIA TROPONIN 8 [facility] HOSP QUANTITAT INC INC COLE ECG 21824 RADHA LIN ROUTINE 8 [facility] W/LEAST PROF SERV 12 LDS I&R ONLY IV NFUS 60321 RADHA GARCIA THER 8 [facility] HOSP PROPH/DX INC INC EA HR BLOOD 37601 RADHA GARCIA COUNT 8 [facility] COMPLETE INC INC AUTO&AUTO DIFRNTL WBC GROUND A0425 [facility] 8 CO CO PER AMBULANCE AMBULANCE STATUTE SERVICE SERVICE MILE AMBULANCE A0429 [facility] SERVICE 8 CO CO BLS AMBULANCE AMBULANCE EMERGENCY SERVICE SERVICE TRANSPORT PRTBLE E0431 PULMONARY PULMONARY GASEOUS 8 PARTNERS PARTNERS [employer] RENT; FLWMTR HUMIDFR&M ASK O2 CONC 1 E1390 PULMONARY PULMONARY DEL PORT 8 PARTNERS PARTNERS 85%/>02 [employer] CONC AT PRSC FLW RATE INJECTION J1040 CARLOS BETANCUR Ellis 8 MEDICAL J METHYLPRE GROUP DNISOLONE ACETATE 80 MG INJECTION J0696 CARLOS BETANCUR Ellis 8 MEDICAL J CEFTRIAXO GROUP NE SODIUM PER 250 MG THER 79341 [facility] PROPH/DX 8 MEDICAL J NJX GROUP SUBQ/IM O2 CONC 1 E1390 PULMONARY PULMONARY DEL PORT 8 PARTNERS PARTNERS 85%/>02 [facility] CONC AT PRSC FLW RATE PRTBLE E0431 PULMONARY PULMONARY GASEOUS 8 PARTNERS PARTNERS [employer] [facility] RENT; FLWMTR HUMIDFR&M ASK INJECTION J0696 [facility] 8 MEDICAL MEDICAL CEFTRIAXO GROUP GROUP NE SODIUM PER 250 MG THER 76141 [facility] PROPH/DX 8 MEDICAL MEDICAL NJX GROUP GROUP SUBQ/IM CREATINE 35890 RADHA GARCIA KINASE 8 [facility] TOTAL INC INC ECG 46884 RADHA GARCIA ROUTINE 8 [facility]OSP ECG INC INC W/LEAST 12 LDS TRCG ONLY W/O I&R COLLECTIO 23368 RADHA GARCIA N VENOUS 8 [facility]P BLOOD INC INC VENIPUNCT URE BASIC 81144 RADHA GARCIA METABOLIC 8 [facility]OSP PANEL INC INC CALCIUM TOTAL GLUC BLD 09514 RADHA GARCIA GLUC MNTR 8 [facility] DEV INC INC CLEARED FDA SPEC HOME USE CREATINE 61294 RADHA GARCIA KINASE MB 8 [facility] [place] [address] RADHA GARCIA TROPONIN 8 [facility] QUANTITAT INC INC COLE ECG 40788 RADHA GARCIA ROUTINE 8 [facility] ECG INC INC W/LEAST 12 LDS I&R ONLY BLOOD 68150 RADHA GARCIA COUNT 8 [facility] COMPLETE INC INC AUTO&AUTO DIFRNTL WBC BLOOD 63011 RADHA GARCIA COUNT 8 [facility] COMPLETE INC INC AUTO&AUTO DIFRNTL WBC CPAP 07294 RADHA GARCIA VENTILATI 8 [facility] ON CPAP INC INC INITIATIO N&MGMT SUSCEPTIB 65295 RADHA GARCIA LTY STDY 8 [facility] ANTIMICRB INC INC IAL MICRO/AGA R DILUTJ INITIAL 70161 [place] JOSE ALFREDO ROD 8 [facility] ON INTERNAL CARE/DAY MED 30 MINUTES GROUND A0425 [facility] 8 AMBULANCE AMBULANCE PER SERVICE SERVICE STATUTE MILE ECG 12119 RADHA GARCIA ROUTINE 8 [facility] ECG INC INC W/LEAST 12 LDS [place] [address] RADHA GARCIA TROPONIN 8 [facility] QUANTITAT INC INC COLE CREATINE 11879 RADHA GARCIA KINASE MB 8 [facility] FRACTION INC INC ONLY CULTURE 64179 RADHA GARCIA BACTERIAL 8 [facility] INC INC QUANTTATI VE COLONY COUNT URINE THER 94585 RADHA GARCIA PROPH/DX 8 [facility] NJX EA INC INC SEQL IV PUSH SBST/DRUG PROTHROMB 72723 RADHA GARCIA IN TIME 8 [facility] INC INC GLUC BLD 62100 RADHA GARCIA GLUC MNTR 8 [facility] DEV INC INC CLEARED FDA SPEC HOME USE URNLS DIP 32496 RADHA GARCIA 8 [facility] STICK/TAB INC INC LET [facility] G0378 RADHA GARCIA OBSERVATI 8 [facility] ON INC INC SERVICE PER HOUR AMB A0427 [facility] SERVICE 8 AMBULANCE AMBULANCE ALS SERVICE SERVICE EMERGENCY TRANSPORT LEVEL 1 BASIC 72605 RADHA GARCIA METABOLIC 8 [facility] PANEL INC INC CALCIUM TOTAL RADIOLOGI 89780 Catrachita [place] 8 MEDICAL BLAINE EXAMINATI IMAGING ON CHEST ASSOCIATE SINGLE S VIEW FRONTAL ECG 70120 RADHA GARCIA ROUTINE 8 [facility] ECG INC INC W/LEAST 12 LDS TRCG ONLY W/O I&R CREATINE 92598 RADHA GARCIA KINASE 8 [facility] TOTAL INC INC THER 08182 RADHA GARCIA PROPH/DX 8 [facility] NJX IV INC INC PUSH 1ST SBST/DRUG O2 CONC 1 E1390 PULMONARY PULMONARY DEL PORT 8 PARTNERS PARTNERS 85%/>02 LLC LLC CONC AT PRSC FLW RATE PRTBLE E0431 PULMONARY PULMONARY GASEOUS 8 PARTNERS PARTNERS [employer] RENT; FLWMTR HUMIDFR&M ASK Encounters Encounter Start End Date Code Location Performer Type Date Inpatient RUBEN Benitez (IN) 3 22:35 3 02:58 [facility] MIRIAM Garcia (ER) 3 17:03 3 19:01 [facility] - OTHER [address] [facility]ICAL [facility] ACCESS 0 0 [facility] CRITICAL ST ACCESS 0 0 [facility] OFFICE 45251 JULIOIT NICOLAS ARTEAGA 9 9 MEDICAL VIRAL T VISIT GROUP 25 MINUTES OFFICE 42033 LICNICOLAS CARLSON 9 9 [facility] T VISIT INTERNAL 25 MED MINUTES EMERGENCY 73008 RADHA 9 9 [facility] DEPARTMEN INC T VISIT HIGH/URGE NT SEVERITY EMERGENCY 08056 TOMASZ LOPEZ DEPT 9 9 EMERGENCY ABDULAZIZ S VISIT SERVICES HIGH SEVERITY& ASSOCIATE THREAT S [facility] RADHA - 9 9 [facility] OUTPATIEN INC T H[facility]PITAL ST - OTHER 9 9 [facility] NTER OFFICE 69357 [facility] CHANDLER OUTPATIEN 9 9 MEDICAL VIRAL T VISIT GROUP 25 MINUTES HOSPITAL RADHA - 9 9 [facility] OUTPATIEN INC T EMERGENCY 04406 TOMASZ WILKS DEPT 9 9 EMERGENCY SUSAN VISIT SERVICES O HIGH SEVERITY& ASSOCIATE THREAT S [facility] ST - OTHER 9 9 [facility] OFF[facility] 13984 [facility]UST ARTEAGAPATIEN 9 9 MEDICAL VIRAL T VISIT GROUP 25 MINUTES OFFICE 32827 [facility] OUTPATIEN 9 9 MEDICAL VIRAL T VISIT GROUP [address] - OTHER 9 9 [facility] NTER OFFICE 06124 [facility] Ellis BETANCUR OUTPATIEN 9 9 MEDICAL J T VISIT GROUP [address] ACCESS 9 9 [facility] EMERGENCY [address] 9 9 [facility] T VISIT MODERATE SEVERITY EMERGENCY 14924 RADHA DEPT 9 9 [facility] VISIT INC HIGH SEVERITY& THREAT [facility] RADHA - 9 9 [facility] OUTPATIEN INC T EMERGENCY 48493 MARGA NEWSOME, DEPT 8 8 NATIONAL RONDA E VISIT CORPORATI HIGH ON SEVERITY& THREAT [facility] RADHA - 8 8 [facility] OUTPATIEN INC T EMERGENCY 48310 RADHA 8 8 [facility] DEPARTMEN INC T VISIT HIGH/URGE NT SEVERITY EMERGENCY 75329 MARGA NEWSOME, 8 8 [facility] T VISIT ON HIGH/URGE NT SEVERITY EMERGENCY 18663 RADHA 8 8 [facility] INC T VISIT LOW/MODER SEVERITY HOSPITAL RADHA - 8 8 [facility] OUTPATIEN INC T OFFICE 12399 MARIAMADELANICOLAS LIRA 8 8 HEART & DIRK Y T VISIT VASCULAR 15 ASSOC MINUTES OFFICE 88010 MORELIA ABHI FRENCH 8 8 HEART & DIRK Y ION VASCULAR NEW/ESTAB ASSOC PATIENT 30 MIN HOSPITAL RADHA - 8 8 [facility] OUTPATIEN INC T EMERGENCY 93473 RADHA JIN, [address] [facility] T VISIT PROF SERV HIGH/URGE NT SEVERITY EMERGENCY 19666 RADHA DE LA CRUZ, 8 8 [facility] T VISIT PROF SERV LOW/MODER SEVERITY HOSPITAL RADHA - 8 8 [facility] OUTPATIEN INC T EMERGENCY 60523 RADHA 8 8 [facility] INC T VISIT LIMITED/M INOR PROB EMERGENCY 34093 RADHA 8 8 [facility] HIGH/URGE NT SEVERITY [facility]OSP[facility] - 8 8 [facility] T OFFICE [id number] [facility] PRE[facility]AD[facility] 8 8 [facility] J T [facility]ISIT GROUP 25 MINUTES OFFICE [id number] [facility] 8 8 [facility] T VISIT GROUP GROUP 25 MINUTES HOSPITAL [facility] - 8 8 [facility] OUTPATIEN INC T EMERGENCY [id number] [facility] DEPT 8 8 [facility] VISIT INC [facility]IGH SEVERITY& THREAT FUNCJ
--- OUTSIDE RECORDS SUMMARY | 2016-11-09 17:28 | External Medical Summary Rpt ---
Author Author , GEREMIAS Gleason SHALOMGAEL Address Unknown Phone Care Team Providers Care Child Protective Investigator Name Role Phone [facility] Unavailable Unavailable PHARMACY, [facility] REX DE LA CRUZ, JONO, Unavailable Unavailable LY VÁZQUEZ, Unavailable Unavailable LY ROD III, WESLEY, Unavailable Unavailable CHARI NESS III [facility] Unavailable Unavailable SERVICE, [facility] BLAINE JAUREGUI, Unavailable Unavailable BLAINE JAUREGUI [facility] Unavailable Unavailable MEDICAL EQUIPMENT, [facility] Unavailable Unavailable LLC, [facility] ABDULAZIZ LOPEZ, Unavailable Unavailable ABDULAZIZ LOPEZ RONDAL E, Unavailable Unavailable [facility] Un[facility] Unavailable INC, [facility] Unavailable Unavailable INC, [facility] SUZY DRISCOLL HARVEY, Unavailable Unavailable SUZ[facility] Unavailable Unavailable [facility], [facility] Unavailable Unavailable [facility]PL[facility], [facility] SHRUTHI LIN JR Unavailable Unavailable [...] BABATUNDE O, Unavailable Unavailable RUPERTO WILKSATUNDE O [facility] Unavailable Unavailable HOSPITAL, [facility] Unavailable Unavailable [facility]ENTER, [facility], Unavailable Unavailable [facility] FEROZ JIN, Unavailable Unavailable FEROZ JIN Purpose Continuity of Care Document - 06-26-2007 through 2016 Problems Code Diagnosis DOS Provider Status 2449 UNSPECIFIED 05-12-2009 [facility] [facility] [place] [address] DIAB W/O 04-28-2009 [facility] COMP TYPE ASSOCI[facility] II/UNS NOT PSC STATED UNCNTRL 4660 ACUTE 04-28-2009 [facility] BRONCHITIS [facility] PSC 515 POSTINFLAMM 04-28-2009 [facility] FIBROSIS 48714 SHORTNESS 04-28-2009 [facility] OF BREATH ASSOCIATES PSC 7931 NONSPEC 04-28-2009 [facility] EXAM HOSPITAL BODY STRUCT LUNG FIELD 29194 OT NONSPC 04-28-2009 [facility] ABN FINDNG [facility] RAD&OTH EXM PSC BODY STRUCTURE 7862 COUGH 04-20-2009 [facility] PSC 4928 OTHER 03-22-2009 [facility] 496 CHRONIC 03-22-2009 [facility] AIRWAY [facility]STRUCTION LLC NEC 4019 UNSPECIFIED 03-16-2009 [facility] N 5990 URINARY 03-16-2009 [facility] SITE NOT SPECIFIED 7226 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-16-2009 [facility] N [facility]ICAL INTERVERTEB GROUP RAL DISC SITE UNSPEC 7291 UNSPECIFIED 02-04-2009 [facility] MYOSITIS MED 22450 OTHER 02-04-2009 [facility] FATIGUE INTERNAL MED 77984 OTHER CHEST 02-04-2009 [facility] [place] [facility] INTERNAL MED 08258 MORBID 01-29-2009 [facility] 490 BRONCHITIS 01-29-2009 [facility] ACUTE OR PROF SERV CHRONIC 24572 ESOPHAGEAL 01-29-2009 [facility]FLUX [facility] 5859 CHRONIC 01-29-2009 [facility] UNSPECIFIED ASSOCIATES 83402 OTHER 01-29-2009 [facility] DYSPNEA [facility]GENCY SERVICES [place] [address] CHEST PAIN 01-29-2009 [facility] PROF SERV 7906 OTHER 01-29-2009 [facility] ABNORMAL CO BLOOD AMBULANCE CHEMISTRY SERVICE V5867 LONG-TERM 01-29-2009 [facility] USE OF [facility] INSULIN INC V5869 LONG-TERM 01-29-2009 [facility] (CURRENT) [facility] OF [facility] OTHER PROF SERV MEDICATIONS 7245 UNSPECIFIED 01-19-2009 [facility] 22550 DIAB W/O 01-05-2009 [facility] COMP TYPE I CARE CLUB [JUV] NOT LLC STATED UNCNTRL 59213 GENERALIZED 01-05-2009 [facility] OSTEOARTHRO LLC SIS UNSPECIFIED SITE 09012 OTHER 12-19-2008 [facility]RONIC [facility] PAIN INC 58533 NAUSEA WITH 12-19-2008 [facility] VOMITING [place] INTERNAL MED 2766 FLUID 12-18-2008 [facility] 7336 TIETZES 12-18-2008 [facility] DISEASE [facility] V0481 NEED 12-18-2008 [facility] PROPHYLACTI MEDICAL C GROUP VACCINATION &INOCULATIO N FLU 23547 DIAB 11-19-2008 [facility] W/NEURO MEDICAL MANIFESTS GROUP TYPE II/UNS NOT UNCNTRL 3572 POLYNEUROPA 11-19-2008 [facility] THY IN MEDICAL DIABETES GROUP 6929 CONTACT 10-17-2008 [facility] DERMATITIS& MEDICAL OTHER GROUP ECZEMA DUE UNSPEC CAUSE 08255 PAIN IN 08-19-2008 [facility] JOINT, MEDICAL SHOULDER GROUP REGION 86062 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 2724 OTHER AND 06-05-2008 [facility] UNSPECIFIED [facility] INC HYPERLIPIDE NICHOLAS 5939 UNSPECIFIED 06-05-2008 [facility] DISORDER [employer] AND URETER 40843 PRECORDIAL 06-05-2008 [facility] PAIN Impact Engine 42131 OBSTRUCTIVE 02-08-2008 [facility] CHRONIC PHARMACY BRONCHITIS WITHOUT EXACERBAT 31246 OBST 02-08-2008 [facility] CHRONIC [facility] BRONCHITIS INTERNAL W/ACUTE MED BRONCHITIS 14715 WHEEZING 02-07-2008 [facility] 36599 MIGRAINE 01-26-2008 [facility] UNSP W/O Home[employer]18 INTRACT W/O [employer] STATUS MIGRAINOSUS 7840 HEADACHE 01-26-2008 [facility] 75524 OBSTRUCTIVE 09-24-2007 [facility] 3540 CARPAL 08-07-2007 [facility] TUNNEL [facility] SYNDROME GROUP 4619 ACUTE 08-07-2007 [facility] SINUSITIS, MEDICAL UNSPECIFIED GROUP 4779 ALLERGIC 08-07-2007 [facility] RHINITIS MEDICAL CAUSE GROUP UNSPECIFIED 81390 OSTEOARTHRO 08-07-2007 [facility] SIS UNSPEC MEDICAL WHETHER GROUP GEN/LOC LOWER LEG 412 OLD 06-28-2007 [facility]OCARDIAL [facility] INFARCTION INC 00283 COR 06-28-2007 [facility] UNSPEC INC TYPE VESSEL [place]/JHON T 38074 OSTEOARTHRO 06-28-2007 [facility] S UNSPEC [facility] WHETHER INC GEN/LOC UNSPEC SITE [id number] Type II [place] diabetes [facility] mellitus - Hospital poor control 244.9 Hypothyroid [facility] [id number] Obesity [facility] 530.81 Gastroesoph [place] ageal [facility] reflux Hospital disease [id number] Active [facility] 558.9 Gastroenter [place] itis [facility] 708.9 Acute [place] urticaria [facility] 780.57 Sleep apnea [facility] 786.50 [id number] Chronic 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 Allergies, Adverse Reactions, [...] ti 4 ve MG /2 ML AL OR 00 08 0 No OM 64 -1 [...] RO 07 -1 SE 90 0- Lo OH 07 20 ng DE 32 13 er 0 40 Ac ti MG ve TA BL ET Me 68 08 0 No to 08 -1 cl 40 0- Lo op 09 20 ng ra 10 13 er mi 1 de Ac ti 10 ve MG Ta bl et ME 51 08 0 No TO 07 -1 OR 90 0- Lo OL 80 20 ng [...] Procedure DOS Code Location Performer Comment COLLECTIO [address] N VENOUS 0 [facility] BLOOD VENIPUNCT MEDICALCE MEDICALCE URE NTER NTER BASIC [address] METABOLIC 0 ALEX ALEX PANEL CALCIUM MEDICALCE [place] [address] FREE 0 ALEX ALXE THYROXINE [place] [address] THYROID 0 ALEX ALEX STIMULATI NG MEDICALCE MEDICALCE HORMONE NTER NTER TSH BLOOD [address] COUNT 0 ALEX ALEX COMPLETE AUTO&AUTO MEDICALCE MEDICALCE DIFRNTL NTER NTER WBC COLLECTIO [address] N VENOUS 0 [facility] VENIPUNCT URE CT THORAX 82998 RADIOLOGY SCHMITTER 0 FEROZ W/DANA ASSOCIATE L T S [facility] MATERIAL CREATININ [address] E BLOOD 0 [facility] RADIOLOGI 33577 RADIOLOGY Catrachita ABEL EXAM 0 LY R CHEST 2 ASSOCIATE VIEWS S PSC FRONTAL&L ATERAL O2 CONC 1 E1390 PULMONARY PULMONARY DEL PORT 9 PARTNERS PARTNERS 85%/>02 LLC LLC CONC AT [facility] FLW RATE PRTBLE E0431 PULMONARY PULMONARY GASEOUS 9 PARTNERS PARTNERS [employer]2 SYS LLC LLC RENT; FLWMTR HUMIDFR&M ASK INJECTION J0696 [facility], 9 MEDICAL VIRAL CEFTRIAXO GROUP NE SODIUM PER 250 MG THERAPEUT 28423 [facility] CHANDLER, IC 9 MEDICAL VIRAL PROPHYLAC GROUP TIC/DX INJECTION SUBQ/IM O2 CONC 1 11-06-200 E1390 PULMONARY PULMONARY DEL PORT 9 PARTNERS PARTNERS 85%/>02 LLC [facility] CONC AT [facility] FLW RATE THERAPEUT [address] ST ARTEAGA, IC 9 ALEX VIRAL PROPHYLAC TIC/DX PHYSICIAN INJECTION S SUBQ/IM GLUC BLD 55411 [facility] GLUC MNTR 9 [facility] DEV INC INC CLEARED FDA SPEC HOME USE PRESSURIZ 77980 [facility] GARCIA ED/NONPRE 9 [facility] SSURIZED INC INC INHALATIO N TREATMENT NONINVASI 32984 [facility] G[facility]IA VE 9 [facility] EAR/PULSE INC INC OXIMETRY SINGLE DETER NONINVASI 94979 [facility] GARCIA VE 9 [facility] EAR/PULSE INC INC OXIMETRY SINGLE DETER THERAPEUT 07370 [facility] G[facility]IA IC 9 [facility] INJECTION INC [place] [address] [facility] G[facility]IA INFUSION 9 [facility] THERAPY/P INC INC ROPHYLAXI S /DX 1ST TO 1 HR PRESSURIZ 25522 [facility]IA ED/NONPRE 9 [facility] SSURIZED INC INC INHALATIO N TREATMENT SMR PRIM 13662 [facility] SRC 9 [facility] GRAM/GIEM INC INC SA STAIN BCT FUNGI/[place] [address] [facility] G[facility] TROPONIN 9 [facility] QUANTITAT INC INC COLE BLOOD 18423 [facility] GARCIA COUNT 9 [facility] COMPLETE INC INC AUTO&AUTO DIFRNTL WBC GLUC BLD 51501 [facility] GARCIA GLUC MNTR 9 [facility] DEV INC INC CLEARED FDA SPEC HOME USE ECG 65340 [facility] RODRIGUEZMISusy ROUTINE 9 [facility] SHRUTHI W/LEAST PROF SERV 12 LDS I&R ONLY CUL BACT 53637 [facility] GARCIA XCPT 9 [facility] URINE INC INC BLOOD/[place] [address] [facility] GARCIA INFUSION 9 [facility] THERAPY INC INC PROPHYLAX IS/DX EA HOUR CREATINE 80451 [facility] G[facility]IA KINASE MB 9 [facility] FRACTION INC INC ONLY SPUTUM 56793 [facility] GARCIA OBTAINING 9 [facility] SPEC INC INC AEROSOL INDUCED TX SPX ECG 33799 [facility]IA ROUTINE 9 [facility] ECG INC INC W/LEAST 12 LDS TRCG ONLY W/O I&R BASIC 07563 [facility] METABOLIC 9 [facility] PANEL INC INC CALCIUM TOTAL CREATINE 19936 [facility] G[facility] KINASE 9 [facility] TOTAL INC INC COLLECTIO 10260 [facility] G[facility]IA N VENOUS 9 [facility] BLOOD INC INC VENIPUNCT URE CREATINE 94849 [facility] KINASE 9 [facility]OS[facility] TOTAL INC INC BASIC 01566 [facility] G[facility] METABOLIC 9 [facility] PANEL INC INC CALCIUM TOTAL RADIOLOGI 76099 [facility] Catrachita JAUREGUI 9 MEDICAL BLAINE EXAMINATI IMAGING ON CHEST ASSOCIATE SINGLE S VIEW FRONTAL CREATINE 29427 RAD[facility] GARCIA KINASE MB 9 [facility] FRACTION INC INC ONLY ECG 53876 [facility] GARCIA ROUTINE 9 [facility] ECG INC INC W/LEAST 12 LDS TRCG ONLY W/O I&R IAADI 00064 [facility] INFLUENZA 9 [facility] B VIRUS INC INC IAADI 88709 [facility] G[facility] INFFLUENZ 9 [facility] A A VIRUS INC INC HOSPITAL G0378 [facility] G[facility] OBSERVATI 9 [facility] ON INC INC SERVICE PER HOUR AMB A0427 [facility] SERVICE 9 [facility] ALS AMB[facility]ANCE AMBULANCE EMERGENCY SERVICE SERVICE TRANSPORT LEVEL 1 ECG 54981 TOMASZ HORVATHEY, ROUTINE 9 EMERGENCY ABDULAZIZ S ECG SERVICES W/LEAST 12 LDS [place]OCIATE [place] [address] [facility] G[facility] TROPONIN 9 [facility] QUANTITAT INC INC COLE NATRIURET 55456 [facility] G[facility]IA IC 9 [facility]OS[facility] PEPTIDE INC INC BLOOD 05694 [facility] GARCIA COUNT 9 [facility] COMPLETE INC INC AUTO&AUTO DIFRNTL WBC GROUND A0425 [facility] WEISS MILEAGE 9 CO CO PER AMBULANCE AMBULANCE STATUTE SERVICE SERVICE MILE PRTBLE E0431 PULMONARY PULMONARY GASEOUS 9 PARTNERS PARTNERS [employer] LLC RENT; FLWMTR HUMIDFR&M ASK O2 CONC 1 E1390 PULMONARY PULMONARY DEL PORT 9 PARTNERS PARTNERS 85%/>02 LLC LLC CONC AT [facility] [place] [place] [address] FREE 9 ALEX ALEX THYROXINE [place] [address] THYROID 9 ALEX ALEX STIMULATI NG MEDICALCE MEDICALCE HORMONE NTER NTER TSH HEMOGLOBI [address] N 9 ALEX ALEX GLYCOSYLA [...] CHANTAL BG MON OWN PT EA OBSERVATI 22028 [facility] [place] ON CARE 9 [facility], DISCHARGE INTERNAL SHRUTHI Felipe MED [facility] T GLUC BLD 50337 [facility] GARCIA GLUC MNTR 9 [facility] DEV INC INC CLEARED FDA SPEC HOME USE NONINVASI 04980 [facility] G[facility]IA VE 9 [facility] EAR/PULSE INC INC OXIMETRY SINGLE DETER PRESSURIZ 42148 [facility] GARCIA ED/NONPRE 9 [facility] SSURIZED INC INC INHALATIO N TREATMENT PRESSURIZ 37957 [facility] G[facility]IA ED/NONPRE 9 [facility] SSURIZED INC INC INHALATIO N TREATMENT BLOOD 56395 [facility] GARCIA COUNT 9 [facility] COMPLETE INC INC AUTO&AUTO DIFRNTL WBC THERAPEUT 64534 [facility]HA IC 9 [facility] INJECTION INC INC IV PUSH EACH NEW DRUG INITIAL 11666 [facility] [place] OBSERVATI 9 [facility], ON INTERNAL [facility] CARE/DAY MED 30 [place] [address] [facility] ELIASON TROPONIN 9 [facility] QUANTITAT INC INC COLE ECG 84653 [facility] LIN ROUTINE 9 [facility] W/LEAST PROF SERV 12 LDS I&R ONLY GLUC BLD 80404 [facility] ELIASON GLUC MNTR 9 [facility] DEV INC INC CLEARED FDA SPEC HOME USE HOSPITAL G0378 [facility] GARCIA OBSERVATI 9 [facility] ON INC INC SERVICE PER HOUR THER 71100 [facility] GARCIA PROPH/DX 9 [facility] NJX IV INC INC PUSH SINGLE/1S T SBST/DRUG ECG 56436 [facility] GARCIA ROUTINE 9 [facility] ECG INC INC W/LEAST 12 LDS TRCG ONLY W/O I&R CREATINE 19768 [facility] GARCIA KINASE MB 9 [facility] FRACTION INC INC ONLY BASIC 84384 [facility] G[facility]IA METABOLIC 9 [facility] PANEL INC INC CALCIUM TOTAL RADIOLOGI 29408 [place] Catrachita JAUREGUI 9 MEDICAL BLAINE EXAMINATI IMAGING ON CHEST ASSOCIATE SINGLE S VIEW FRONTAL COLLECTIO 59952 [facility] G[facility] N VENOUS 9 [facility] BLOOD INC INC VENIPUNCT URE CREATINE 85268 [facility] G[facility] KINASE 9 [facility] TOTAL INC INC BILIRUBIN [address] DIRECT 9 [facility] 85158 [facility], ROUTINE 9 MEDICAL VIRAL ECG GROUP W/LEAST 12 LDS W/I&R COLLECTIO 11288 [facility], N VENOUS 9 MEDICAL VIRAL BLOOD GROUP VENIPUNCT URE COMPREHEN [address] SIVE 9 ALEX ALEX METABOLIC PANEL MEDICALCE MEDICALCE NTER NTER THERAPEUT 13026 CARL[facility] CHANDLER, IC 9 MEDICAL VIRAL PROPHYLAC GROUP TIC/DX INJECTION SUBQ/IM ADMINISTR G0008 [facility], ATION OF 9 MEDICAL VIRAL INFLUENZA GROUP VIRUS VACCINE INJECTION J1040 [facility], 9 MEDICAL VIRAL METHYLPRE GROUP DNISOLONE ACETATE 80 MG RADIOLOGI 24777 [facility] GROVER C EXAM 9 III, CHEST 2 ASSOCIATE CHARI GLOVER S [facility] FRONTAL&[place] [address] THYROID 9 ALEX ALEX STIMULATI NG MEDICALCE MEDICALCE HORMONE NTER NTER TSH IIV3 61877 [facility], VACCINE 9 MEDICAL VIRAL SPLIT GROUP VIRUS 0.5 ML DOSAGE IM USE ELECTRIC E0215 DI[facility] DIABETES HEAT PAD 9 CARE CLUB CARE CLUB [facility] LLC THERAPEUT 67744 CARLOS ARTEAGA, IC 9 MEDICAL VIRAL PROPHYLAC GROUP TIC/DX INJECTION SUBQ/IM SPRING-PO A4258 [facility] LIBERTY WERED 9 MEDICAL HARNESS PLACER SUPPLY SUPPLY FOR LANCET EACH BLD GLU A4253 [facility] TEST/REAG 9 MEDICAL MEDICAL T STRIPS SUPPLY SUPPLY HOME BLD GLU MON-50 NORMAL A4256 [facility] LOW AND 9 MEDICAL MEDICAL HIGH SUPPLY SUPPLY CALIBRATO R SOLUTION/ CHIPS BLOOD [address] COUNT 9 ALEX ALEX COMPLETE AUTO&AUTO MEDICALCE MEDICALCE DIFRNTL NTER NTER WBC HEMOGLOBI [address] N 9 ALEX ALEX GLYCOSYLA MARLYN A1C MEDICALCE MEDICALCE NTER NTER INJECTION J1040 Ellis PRECIADO 9 MEDICAL J METHYLPRE GROUP DNISOLONE ACETATE 80 MG THERAPEUT 92194 Ellis PRECIADO IC 9 MEDICAL J PROPHYLAC GROUP TIC/DX INJECTION SUBQ/[place] [address] FREE 9 ALEX ALEX THYROXINE [place] [address] ST THYROID 9 [facility] STIMULATI NG MEDICALRAJINDER MEDICALCE HORMONE NTER NTER TSH LIPID [address] PANEL 9 ALEXLUPE JOHNSON MEDICALCE MEDICALCE NTER NTER COMPREHEN [address] SIVE 9 ALEX ALEX METABOLIC PANEL MEDICALCE MEDICALCE NTER NTER BILIRUBIN [address] DIRECT 9 ALEX ALEX MEDICALCE MEDICALCE NTER NTER CREATINE 13503 [facility] KINASE 9 [facility] TOTAL INC INC COLLECTIO 27802 [facility] GARCIA N VENOUS 9 [facility] BLOOD INC INC VENIPUNCT URE RADIOLOGI 43564 [facility] GARCIA C 9 [facility] EXAMINATI INC INC ON CHEST SINGLE VIEW FRONTAL BASIC 74381 [facility] GARCIA METABOLIC 9 [facility] PANEL INC INC CALCIUM TOTAL ECG 53885 [facility] GARCIA ROUTINE 9 [facility] ECG INC INC W/LEAST 12 LDS TRCG ONLY W/O I&R HOSPITAL G0378 [facility] GARCIA OBSERVATI 9 [facility] ON INC INC SERVICE PER HOUR THER 60175 [facility]IA PROPH/DX 9 [facility] NJX IV INC INC PUSH SINGLE/1S T SBST/DRUG CREATINE 29180 [facility] GARCIA KINASE MB 9 [facility] FRACTION INC INC ONLY GLUC BLD 97717 RADHA GARCIA GLUC MNTR 9 [facility] DEV INC INC CLEARED FDA SPEC HOME USE ECG 02343 [facility] DRISCOLL, ROUTINE 9 [facility] HOSPITAL W/LEAST PROF SERV 12 LDS I&R ONLY BLOOD 11801 [facility] GARCIA COUNT 9 [facility] COMPLETE INC INC AUTO&[place] [address] [facility] GARCIA TROPONIN 9 [facility] QUANTITAT INC INC COLE THERAPEUT 59171 [facility] GARCIA IC 9 [facility] INJECTION INC INC IV PUSH EACH NEW DRUG INITIAL 36261 JOSE ALFREDO HDEZ 9 INDIRA Navarro ON [...] LLC CONC AT PRSC FLW RATE CREATINE 23240 [facility] GARCIA KINASE MB 8 [facility] FRACTION INC INC ONLY OBSERVATI 55390 [facility] [place] ON CARE 8 [facility] A DISCHARGE INTERNAL MED MANAGEMEN T ECG 73728 [facility] GARCIA ROUTINE 8 [facility] ECG INC INC W/LEAST 12 LDS TRCG ONLY W/O I&R COLLECTIO 87406 RAD[facility] GARCIA N VENOUS [address] [facility] BLOOD INC INC VENIPUNCT URE ADMN SET A7005 [facility] PULMO W/SM VOL 8 DOSE DOSE NONFILTR PHARMACY PHARMACY NEBULIZR NON-DISPB L CREATINE 22709 [facility] GARCIA KINASE 8 [facility] TOTAL INC INC ALBUTEROL J7620 PULMO PULMO TO 2.5 8 DOSE DOSE MG & PHARMACY PHARMACY IPRATROPI [place] 0.[address] [place] [address] [facility] GARCIA TROPONIN 8 [facility] QUANTITAT INC INC COLE ECG 53756 [facility] DRISCOLL, ROUTINE 8 [facility] HOSPITAL W/LEAST PROF SERV 12 LDS I&R ONLY GLUC BLD 55038 [facility] GARCIA GLUC MNTR 8 [facility] DEV INC INC CLEARED FDA SPEC HOME USE PHRM Q0514 PULMO PULMO DISPENSIN 8 DOSE DOSE G FEE PHARMACY PHARMACY INHALATIO N RX; PER 90 DAYS GLUC BLD 96154 [facility] GARCIA GLUC MNTR 8 [facility] DEV INC INC CLEARED FDA SPEC HOME USE NATRIURET 80046 [facility] GARCIA IC 8 [facility] PEPTIDE INC INC ECG 91830 RAD[facility] DRISCOLL ROUTINE 8 [facility] W/LEAST PROF SERV 12 LDS I&R ONLY INITIAL 59242 [facility] [place] OBSERVATI 8 [facility] ON INTERNAL CARE/DAY MED 30 MINUTES NONINVASI 22358 RAD[facility] GARCIA VE 8 [facility] EAR/PULSE INC [place] [address] RAD[facility] GARCIA TROPONIN 8 [facility] QUANTITAT INC INC COLE BLOOD 76353 [facility] GARICA COUNT 8 [facility] COMPLETE INC INC AUTO&AUTO DIFRNTL WBC CULTURE 20453 [facility] GARCIA BACTERIAL 8 [facility] BLOOD INC INC AEROBIC W/ID ISOLATES PRESSURIZ 72955 [facility] GARCIA ED/NONPRE 8 [facility] SSURIZED INC INC INHALATIO N TREATMENT CREATINE 26911 [facility] GARCIA KINASE 8 [facility] TOTAL INC INC THER 92048 RADHA GARCIA PROPH/DX 8 [facility] NJX IV INC INC PUSH 1ST SBST/DRUG COLLECTIO [id number] RADHA GARCIA N VENOUS 8 [facility] BLOOD INC INC VENIPUNCT URE INJECTION [id number] RADHA GARCAI 8 [facility] ONDANSETR INC INC ON HCL PER 1 MG ECG 32683 RADHA GARCIA ROUTINE 8 [facility] ECG INC INC W/LEAST 12 LDS TRCG ONLY W/O I&R BASIC 13613 RADHA GARCIA METABOLIC 8 [facility] PANEL INC INC CALCIUM TOTAL RADIOLOGI 65661 RADHA GARCIA C 8 [facility] EXAMINATI INC INC ON CHEST SINGLE VIEW FRONTAL THER 22272 RADHA GARCIA PROPH/DX 8 [facility] NJX EA INC INC SEQL IV PUSH SBST/DRUG HOSPITAL [id number] RADHA GARCIA OBSERVATI 8 [facility] ON INC INC SERVICE PER HOUR CREATINE 57402 RADHA RADHA KINASE MB 8 [facility] FRACTION INC INC ONLY O2 CONC 1 E1390 PULMONARY PULMONARY DEL PORT 8 [employer]ERS 85%/>02 LLC LLC CONC AT PRSC FLW RATE 3D 90409 RADHA GARCIA RENDERING 8 [facility] W/INTERP INC INC [place] [address] [facility] CHAVARRIA, HEAD/BRAI 8 MEDICAL JACKI Baron N W/O IMAGING CONTRAST ASSOCIATE MATERIAL S THER 19156 RADHA GARCIA PROPH/DX 8 [facility] NJX INC INC SUBQ/IM PRTBLE E0431 PULMONARY PULMONARY GASEOUS 8 PARTNERS [facility] [employer] RENT; FLWMTR HUMIDFR&M ASK ECG 18357 [place] SARAFF, ROUTINE 8 [facility]ART & DIRK Y ECG VASCULAR W/LEAST ASSOC 12 LDS W/I&R DOPPLER 15043 RADHA LIN ECHOCARD 8 [facility] SHRUTHI Felipe WAVE PROF SERV W/SPECTRA L DISPLAY ECHO 91959 RADHA LIN TRANSTHOR 8 [facility] R-T 2D [facility] W/WO PROF SERV M-MODE REC COMP DOP 83281 RADHA LNI ECHOCARD 8 [facility] SH[facility] F FLOW PROF SERV VELOCITY MAPPING RADIOLOGI 38088 [facility] C 8 MEDICAL MEDICAL EXAMINATI IMAGING IMAGING ON CHEST ASSOCIATE ASSOCIATE SINGLE S S VIEW FRONTAL RADEX 55329 [place] AURA, SHOULDER 8 MEDICAL JACKI P COMPLETE IMAGING MINIMUM 2 ASSOCIATE VIEWS S ECG 10671 RADHA LIN ROUTINE 8 [facility] SH[facility]UTHI W/LEAST PROF SERV 12 LDS I&R ONLY ECG 57009 RADHA LIN ROUTINE 8 [facility] W/LEAST PROF SERV 12 LDS I&R ONLY PRTBLE E0431 PULMONARY PULMONARY GASEOUS 8 [facility] [employer] [facility] RENT; FLWMTR HUMIDFR&M ASK O2 CONC 1 E1390 PULMONARY PULMONARY DEL PORT 8 PARTNERS PARTNERS 85%/>02 LLC LLC CONC AT PRSC FLW RATE FILTER A7039 VALENTINA MONTGOMERY NON 8 HOME HOME DISPBL MEDICAL MEDICAL USED EQUIPMENT EQUIPMENT W/POS ARWAY PRESS DEVICE THER [id number] RADHA GARCIA PROPH/DX 8 [facility] NJX INC INC SUBQ/IM NASL A7034 [place] INTRFCE 8 HOME HOME POS [facility] PRSS EQUIPMENT EQUIPMENT DEVC W/WO HEAD STRAP HEADGEAR A7035 [place] USED 8 HOME HOME W/POSITIV MEDICAL MEDICAL E AIRWAY EQUIPMENT EQUIPMENT PRESSURE DEVICE TUBING A7037 [place] USED WITH 8 HOME HOME POSITIVE MEDICAL MEDICAL AIRWAY EQUIPMENT EQUIPMENT PRESSURE DEVICE THER 89966 RADHA GARCIA PROPH/DX 8 [facility] NJX EA INC INC SEQL IV PUSH SBST/DRUG CREATINE 30080 RADHA GARCIA KINASE 8 [facility] TOTAL INC INC ECG 08816 RADHA GARCIA ROUTINE 8 [facility] ECG INC INC W/LEAST 12 LDS TRCG ONLY W/O I&R IV NFS 69620 RADHA GARCIA THER 8 [place] [facility] PROPH/DX INC INC 1ST >1 HR RADIOLOGI 87734 RADHA GARCIA C 8 [facility] EXAMINATI INC INC ON CHEST SINGLE VIEW FRONTAL CREATINE 75900 RADHA GARCIA KINASE MB 8 [facility] FRACTION INC INC ONLY BASIC 73118 RADHA GARCIA METABOLIC 8 [facility] [place] [address] RADHA GARCIA TROPONIN 8 [facility] QUANTITAT INC INC COLE ECG 88516 RADHA LIN ROUTINE 8 [facility] W/LEAST PROF SERV 12 LDS I&R ONLY IV NFUS 35918 RADHA GARCIA THER 8 [facility] PROPH/DX INC INC EA HR BLOOD 63515 RADHA GARCIA COUNT 8 [facility] COMPLETE INC INC AUTO&AUTO DIFRNTL WBC [...] GROUP NE SODIUM PER 250 MG THER 57954 [facility]DX 8 MEDICAL J NJX GROUP SUBQ/IM O2 CONC 1 E1390 PULMONARY PULMONARY DEL PORT 8 PARTNERS PARTNERS 85%/>02 [employer] CONC AT PRSC FLW RATE PRTBLE E0431 PULMONARY PULMONARY GASEOUS 8 PARTNERS PARTNERS [employer] RENT; FLWMTR HUMIDFR&M ASK INJECTION J0696 [facility] 8 MEDICAL MEDICAL CEFTRIAXO GROUP GROUP NE SODIUM PER 250 MG THER 32183 [facility] PROPH/DX 8 MEDICAL MEDICAL NJX GROUP GROUP SUBQ/IM CREATINE 93125 RADHA GARCIA KINASE 8 [facility] TOTAL INC INC ECG 49947 RADHA GARCIA ROUTINE 8 [facility] ECG INC INC W/LEAST 12 LDS TRCG ONLY W/O I&R COLLECTIO 42435 RADHA GARCIA N VENOUS 8 [facility] BLOOD INC INC VENIPUNCT URE BASIC 47008 RADHA GARCIA METABOLIC 8 [facility] PANEL INC INC CALCIUM TOTAL GLUC BLD 64906 RADHA GARCIA GLUC MNTR 8 [facility] DEV INC INC CLEARED FDA SPEC HOME USE CREATINE 24181 RADHA GARCIA KINASE MB 8 [facility] [place] [address] RADHA GARCIA TROPONIN 8 [facility] QUANTITAT INC INC COLE ECG 91754 RADHA GARCIA ROUTINE 8 [facility] ECG INC INC W/LEAST 12 LDS I&R ONLY BLOOD 70331 RADHA GARCIA COUNT 8 [facility] COMPLETE INC INC AUTO&AUTO DIFRNTL WBC BLOOD 63662 RADHA GARCIA COUNT 8 [facility] COMPLETE INC INC AUTO&AUTO DIFRNTL WBC CPAP 43011 RADHA GARCIA VENTILATI 8 [facility] ON CPAP INC INC INITIATIO N&MGMT SUSCEPTIB 14789 RADHA GARCIA LTY STDY 8 [facility] ANTIMICRB INC INC IAL MICRO/AGA R DILUTJ INITIAL 18315 [place] JOSE ALFREDO ROD 8 [facility] ON INTERNAL CARE/DAY MED 30 MINUTES GROUND A0425 [facility] 8 AMBULANCE AMBULANCE PER SERVICE SERVICE STATUTE MILE ECG 79420 RADHA GARCIA ROUTINE 8 [facility] ECG INC INC W/LEAST 12 LDS [place] [address] RADHA GARCIA TROPONIN 8 [facility] QUANTITAT INC INC COLE CREATINE 30465 RADHA GARCIA KINASE MB 8 [facility] FRACTION INC INC ONLY CULTURE 28078 RADHA GARCIA BACTERIAL 8 [facility] INC INC QUANTTATI VE COLONY COUNT URINE THER 71742 RADHA GARCIA PROPH/DX 8 [facility] NJX EA INC INC SEQL IV PUSH SBST/DRUG PROTHROMB 74369 RADHA GARCIA IN TIME 8 [facility] INC INC GLUC BLD 00484 RADHA GARCIA GLUC MNTR 8 [facility] DEV INC INC CLEARED FDA SPEC HOME USE URNLS DIP 19777 RADHA GARCIA 8 [facility] STICK/TAB INC INC LET [facility]AG[facility] G0378 RADHA GARCIA OBSERVATI 8 [facility] ON INC INC SERVICE PER HOUR AMB A0427 [facility] 8 AMBULANCE AMBULANCE ALS SERVICE SERVICE EMERGENCY TRANSPORT LEVEL 1 BASIC 04749 RADHA GARCIA METABOLIC 8 [facility] PANEL INC INC CALCIUM TOTAL RADIOLOGI 81714 [facility] 8 MEDICAL BLAINE EXAMINATI IMAGING ON CHEST ASSOCIATE SINGLE S VIEW FRONTAL ECG 89122 RADHA GARCIA ROUTINE 8 [facility] ECG INC INC W/LEAST 12 LDS TRCG ONLY W/O I&R CREATINE 26077 RADHA GARCIA KINASE 8 [facility] TOTAL INC INC THER 86973 RADHA GARCIA PROPH/DX 8 [facility] MEM [...] RUBEN Benitez (IN) 3 22:35 3 02:58 [facility] MIRIAM Garcia (ER) 3 17:03 3 19:01 [facility] ST - OTHER 0 0 [facility] NTER CRITICAL ST ACCESS 0 0 [facility] CRITICAL ST ACCESS 0 0 [facility] OFFICE 28148 JULIOIT NICOLAS ARTEAGA 9 9 MEDICAL VIRAL T VISIT GROUP 25 MINUTES OFFICE 22980 LICNICOLAS CARLSON 9 9 VALLEY LY A T VISIT INTERNAL 25 MED MINUTES EMERGENCY 22479 RADHA 9 9 [facility] DEPARTMEN INC T VISIT HIGH/URGE NT SEVERITY EMERGENCY 29718 TOMASZ LOPEZ DEPT 9 9 EMERGENCY BADULAZIZ S VISIT SERVICES HIGH SEVERITY& ASSOCIATE THREAT S [facility] RADHA - 9 9 [facility] OUTPATIEN INC T H[facility]PITAL ST - OTHER [address] [facility] NTER OFFICE 66593 [facility] OUTPATIEN 9 9 MEDICAL VIRAL T VISIT GROUP 25 MINUTES HOSPITAL RADHA - 9 9 [facility] OUTPATIEN INC T EMERGENCY 22514 TOMASZ WILKS DEPT 9 9 EMERGENCY SUSAN VISIT SERVICES O HIGH SEVERITY& ASSOCIATE THREAT S [facility] ST - OTHER 9 9 [facility] 47567 [facility] ARTEAGAPATIEN 9 9 MEDICAL VIRAL T VISIT GROUP 25 MINUTES OFFICE 39555 [facility] OUTPATIEN 9 9 MEDICAL VIRAL T VISIT GROUP [address] - OTHER [address] [facility] NTER OFFICE 78298 [facility] BETANCUR OUTPATIEN 9 9 MEDICAL J T VISIT GROUP [address] ACCESS 9 9 [facility] EMERGENC[facility] [address] 9 9 [facility] T VISIT MODERATE SEVERITY EMERGENCY 96497 RADHA DEPT 9 9 [facility] VISIT INC HIGH SEVERITY& THREAT [facility] RADHA - 9 9 [facility] OUTPATIEN INC T EMERGENCY 88033 MARGA NEWSOME, DEPT 8 8 [facility]ATIONAL [facility] E VISIT CORPORATI HIGH ON SEVERITY& THREAT [facility] RADHA - 8 8 [facility] OUTPATIEN INC T EMERGENCY 61233 RADHA 8 8 [facility] DEPARTMEN INC T VISIT HIGH/URGE NT SEVERITY EMERGENCY 24990 MARGA NEWSOME, 8 8 [facility] T VISIT ON HIGH/URGE NT SEVERITY EMERGENCY 99795 RADHA 8 8 [facility] INC T VISIT LOW/MODER SEVERITY HOSPITAL RADHA - 8 8 [facility] OUTPATIEN INC T OFFICE 90033 MARIAMADELANICOLAS LIRA 8 8 [facility] T VISIT VASCULAR 15 ASSOC MINUTES OFFICE 18210 MORELIA ABHI FRENCH 8 8 [facility] Y ION VASCULAR NEW/ESTAB ASSOC PATIENT 30 MIN HOSPITAL RADHA - 8 8 [facility] OUTPATIEN INC T EMERGENCY 41206 RADHA JIN, 8 8 [facility] T VISIT PROF SERV HIGH/URGE NT SEVERITY EMERGENCY 20390 RAHDA DE LA CRUZ, 8 8 [facility] T VISIT PROF SERV LOW/MODER SEVERITY HOSPITAL RADHA - 8 8 [facility] OUTPATIEN INC T EMERGENCY 53573 RADHA 8 8 [facility] INC T VISIT LIMITED/M INOR PROB EMERGENCY 94530 RADHA 8 8 [facility] INC T VISIT HIGH/URGE NT SEVERITY HOSPITAL RADHA - 8 8 [facility] OUTPATIEN INC T OFFICE 10018 Ellis PRECIADO 8 8 MEDICAL J T VISIT GROUP 25 MINUTES OFFICE 44689 [facility] OUTFADUMO 8 8 MEDICAL MEDICAL T VISIT GROUP GROUP 25 MINUTES HOSPITAL RADHA - 8 8 [facility] OUTPATIEN INC T EMERGENCY 66886 RADHA DEPT 8 8 [facility] VISIT INC HIGH SEVERITY& THREAT FUNCJ
--- OUTSIDE RECORDS SUMMARY | 2016-11-09 17:31 | External Medical Summary Rpt ---
Demographics Preferred Language Malagasy Marital Status Unknown Alevism Affiliation Unknown Race Unknown Ethnic Group Unknown Author Author , GEREMIAS ARCHULETA Address Unknown Phone Immunization Unable to retrieve immunization data due to connection failure with Immunization Registry. Please try again later.
--- OUTSIDE RECORDS SUMMARY | 2016-11-09 17:31 | External Medical Summary Rpt ---
Author Author , GEREMIAS Gleason GEREMIAS Address Unknown Phone Care Team Providers Care Metallography Teacher Name Role Phone [facility] Unavailable Unavailable PHARMACY, [facility] AYARAM, Unavailable Unavailable LY VÁZQUEZ, Unavailable Unavailable LY ROD [facility] Unavailable Unavailable SERVICE, [facility] JUVENTINOBLAINE NOBLES, Unavailable Unavailable JUVENTINOBLAINE CHOUDHARY [facility] Unavailable Unavailable MEDICAL EQUIPMENT, [facility] Un[facility] Unavailable LLC, [facility] ABDULAZIZ LOPEZ, Unavailable Unavailable ABDULAZIZ LOPEZ RONDAL E, Unavailable Unavailable [facility] Un[facility] Unavailable INC, [facility] Unavailable Unavailable INC, [facility] DRISCOLL HARVEY, Unavailable Unavailable [facility] Unavailable Unavailable [facility], [facility] Unavailable Unavailable [facility], [facility] SHRUTHI LIN JR Unavailable Unavailable Felipe, SHRUTHI LIN JR, G J, MELTON, Unavailable Unavailable JACKI PEARSON, Unavailable Unavailable JACKI CHAVARRIA STEPHEN R, Unavailable Unavailable LY ABEL, VIRAL, CHANDLER, Unavailable Unavailable VIRAL [facility] Unavailable Unavailable [facility]ULANCE SERVICE, [facility], Unavailable Unavailable [facility]available Unavailable LLC, [facility] DIRK FRENCH, Unavailable Unavailable [facility] JEFFREY L, Unavailable Unavailable FEROZ [facility] Unavailable Unavailable [facility], [facility] Unavailable Unavailable [facility], [facility], Unavailable Unavailable [facility] FEROZ JIN, Unavailable Unavailable FEROZ JIN Continuity of Care Document - 06-26-2007 through 2016 Problems Code Diagnosis DOS Provider Status 2449 UNSPECIFIED 05-12-2009 [facility] [place] [address] DIAB W/O 04-28-2009 [facility] COMP TYPE [facility] II/UNS NOT PSC STATED UNCNTRL 4660 ACUTE 04-28-2009 [facility] BRONCHITIS [facility] PSC 515 POSTINFLAMM 04-28-2009 [facility] PULMONARY [facility] FIBROSIS 64254 SHORTNESS 04-28-2009 [facility] OF BREATH [facility] PSC 7931 NONSPEC 04-28-2009 [facility] BODY STRUCT LUNG FIELD 45027 OT NONSPC 04-28-2009 [facility] ABN [facility] RAD&OTH EXM PSC BODY STRUCTURE 7862 COUGH 04-20-2009 [facility] PSC 4928 OTHER 03-22-2009 [facility] 496 CHRONIC 03-22-2009 [facility]AY [facility] NEC 4019 UNSPECIFIED 03-16-2009 [facility] N 5990 URINARY 03-16-2009 [facility] INFECTION GROUP SITE NOT SPECIFIED 7226 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-16-2009 [facility] INTERVERTEB GROUP RAL DISC SITE UNSPEC 7291 UNSPECIFIED 02-04-2009 [facility] [place] [facility]NAL MYOSITIS MED 87468 OTHER 02-04-2009 [facility] FATIGUE INTERNAL MED 13118 OTHER CHEST 02-04-2009 [facility] PAIN APEX INTERNAL MED 74589 MORBID 01-29-2009 [facility] 490 BRONCHITIS 01-29-2009 [facility] ACUTE OR PROF SERV CHRONIC 17626 ESOPHAGEAL 01-29-2009 [facility]UX [facility] 5859 CHRONIC 01-29-2009 [facility] UNSPECIFIED ASSOCIATES 98641 OTHER 01-29-2009 [facility] [place] [address] CHEST PAIN 01-29-2009 [facility] PROF SERV 7906 OTHER 01-29-2009 [facility] BLOOD AMBULANCE CHEMISTRY SERVICE V5867 LONG-TERM 01-29-2009 [facility] INSULIN INC V5869 LONG-TERM 01-29-2009 [facility] (CURRENT) [facility] USE OF HOSPITAL OTHER PROF SERV MEDICATIONS 7245 UNSPECIFIED 01-19-2009 [facility] 35855 DIAB W/O 01-05-2009 [facility] COMP TYPE I CARE CLUB [JUV] NOT LLC STATED UNCNTRL 29644 GENERALIZED 01-05-2009 [facility] SIS UNSPECIFIED SITE 59445 OTHER 12-19-2008 [facility] PAIN INC 19413 NAUSEA WITH 12-19-2008 [facility] VOMITING APEX INTERNAL MED 2766 FLUID 12-18-2008 [facility] 7336 TIETZES 12-18-2008 [facility] DISEASE [facility] V0481 NEED 12-18-2008 [facility] PROPHYLACTI MEDICAL C GROUP VACCINATION &INOCULATIO N FLU 01966 DIAB 11-19-2008 [facility] W/NEURO MEDICAL MANIFESTS GROUP TYPE II/UNS NOT UNCNTRL 3572 POLYNEUROPA 11-19-2008 [facility] THY IN MEDICAL DIABETES GROUP 6929 CONTACT 10-17-2008 [facility] DERMATITIS& MEDICAL OTHER GROUP ECZEMA DUE UNSPEC CAUSE 05419 PAIN IN 08-19-2008 [facility] JOINT, MEDICAL SHOULDER GROUP REGION 30845 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 2724 OTHER AND 06-05-2008 [facility] UNSPECIFIED [facility] HYPERLIPIDE DAVID 5939 UNSPECIFIED 06-05-2008 [facility] DIS[email or web address] KIDNEY [facility] [place] AND URETER 05547 PRECORDIAL 06-05-2008 [facility] PAIN Social 2 Step 43418 OBSTRUCTIVE 02-08-2008 [facility] CH[facility]ARMACY BRONCHITIS WITHOUT EXACERBAT 77187 OBST 02-08-2008 [facility] CHRONIC VALLEY BRONCHITIS INTERNAL W/ACUTE MED BRONCHITIS 59675 WHEEZING 02-07-2008 [facility] [employer] 21781 MIGRAINE 01-26-2008 [facility] UNSP W/O [employer] INTRACT W/O [facility] STATUS MIGRAINOSUS 7840 HEADACHE 01-26-2008 [facility] 79492 OBSTRUCTIVE 09-24-2007 [facility] 3540 CARPAL 08-07-2007 [facility] TUNNEL MEDICAL SYNDROME GROUP 4619 ACUTE 08-07-2007 [facility] SINUSITIS, MEDICAL UNSPECIFIED GROUP 4779 ALLERGIC 08-07-2007 [facility] RHINITIS MEDICAL CAUSE GROUP UNSPECIFIED 29818 OSTEOARTHRO 08-07-2007 [facility] SIS UNSPEC MEDICAL WHETHER GROUP GEN/LOC LOWER LEG 412 OLD 06-28-2007 [facility]OCARDIAL [facility] INFARCTION INC 80745 COR 06-28-2007 [facility]THER[facility]ERO [facility] UNSPEC INC TYPE VESSEL [place]IP[place]/JHON T 05139 OSTEOARTHRO 06-28-2007 [facility] S UNSPEC [facility] WHETHER INC GEN/LOC UNSPEC SITE Immunization Name Date Rout CVX Reac Dose Comm Prov Is Faci e tion ent ider Refu lity Give sed n IIV3 09-0 141 LUIS No [facility] 3-20 L, IT VACC 09 RICHARD MEDI INE L ANDREW SPLI GROU T P VIRU S 0.5 ML DOSA GE IM USE Procedures Procedure DOS Code Location Performer Comment COLLECTIO [address] N VENOUS 0 [facility] BLOOD VENIPUNCT MEDICAL[place] [address] FREE [facility] TH[facility]RO[facility] MEDICAL[facility] MEDICALCE NTER NTER BASIC [address] METABOLIC 0 [facility] PANEL CALCIUM MEDICALCE MEDICALCE TOTAL NTER NTER BLOOD [address] COUNT 0 [facility] COMPLETE AUTO&AUTO MEDICALCE MEDICAL[place] [address] THYROID 0 [facility] STIMULATI NG MEDICALCE MEDICALCE HORMONE NTER NTER TSH CT THORAX 21274 RADIOLOGY SCHMITTER 0 , FEROZ W/DANA ASSOCIATE L T S [facility] MATERIAL CREATININ 510[address] [facility] E BLOOD 0 [facility] COLLECTIO [address] N VENOUS 0 [facility] VENIPUNCT URE RADIOLOGI 89542 RADIOLOGY COLTEN, C EXAM 0 LY R CHEST 2 ASSOCIATE VIEWS S PSC FRONTAL&L ATERAL PRTBLE E0431 PULMONARY PULMONARY GASEOUS 9 PARTNERS PARTNERS [facility] [facility] LLC LLC RENT; FLWMTR HUMIDFR&M ASK O2 CONC 1 E1390 PULMONARY PULMONARY DEL PORT 9 PARTNERS PARTNERS 85%/>02 LLC LLC CONC AT [facility] FLW RATE INJECTION J0696 [facility], 9 MEDICAL VIRAL CEFTRIAXO GROUP NE SODIUM PER 250 MG THERAPEUT 61761 [facility], IC 9 MEDICAL VIRAL PROPHYLAC GROUP TIC/DX INJECTION SUBQ/IM O2 CONC 1 E1390 PULMONARY PULMONARY DEL PORT 9 PARTNERS PARTNERS 85%/>02 LLC LLC CONC AT [facility] FLW RATE THERAPEUT [address] ST ARTEAGA, IC 9 ALEX VIRAL PROPHYLAC TIC/DX PHYSICIAN INJECTION S SUBQ/IM PRESSURIZ 99004 [facility] ED/NONPRE 9 [facility] SSURIZED INC INC INHALATIO N TREATMENT NONINVASI 27386 [facility] GARCIA VE 9 [facility] EAR/PULSE INC INC OXIMETRY SINGLE DETER GLUC BLD 14137 [facility] GARCIA GLUC MNTR 9 [facility] DEV INC INC CLEARED FDA SPEC HOME USE GLUC BLD 35404 [facility] GARCIA GLUC MNTR 9 [facility] DEV INC INC CLEARED FDA SPEC HOME USE ECG 86432 [facility] GARCAI ROUTINE 9 [facility]OS[facility] ECG INC INC W/LEAST 12 LDS TRCG ONLY W/O I&[place] [address] [facility] GARCIA TROPONIN 9 [facility]OSP QUANTITAT INC INC COLE SMR PRIM 56058 [facility] GARCIA SRC 9 [facility] GRAM/GIEM INC INC SA STAIN BCT FUNGI/RAKESH L BLOOD 50256 [facility] GARCIA COUNT 9 [facility] COMPLETE INC INC AUTO&AUTO DIFRNTL WBC CUL BACT 98125 [facility] GARCIA XCPT 9 [facility] URINE INC INC BLOOD/STO OL AEROBIC ISOL BASIC 98732 [facility] GARCIA METABOLIC 9 [facility] PANEL INC INC CALCIUM TOTAL COLLECTIO 92052 [facility] GARCIA N VENOUS 9 [facility] BLOOD INC INC VENIPUNCT URE CREATINE 72367 RAD[facility] GARCIA KINASE MB 9 [facility] FRACTION INC INC ONLY CREATINE 61909 [facility] GARCIA KINASE 9 [facility] TOTAL INC INC NONINVASI 71004 RAD[facility] GARCIA VE 9 [facility] EAR/PULSE [place] [address] RADHA GARCIA INFUSION 9 [facility] THERAPY/P INC INC ROPHYLAXI S /DX 1ST TO 1 HR THERAPEUT 29766 [facility] GARCIA IC 9 [facility] INJECTION INC INC IV PUSH EACH NEW DRUG PRESSURIZ 41125 [facility] GARCIA ED/NONPRE 9 [facility] SSURIZED [place] [address] [facility] GARCIA INFUSION 9 [facility] THERAPY INC INC PROPHYLAX IS/DX EA HOUR ECG 60512 [facility] LIN ROUTINE 9 [facility] W/LEAST PROF SERV 12 LDS I&R ONLY SPUTUM 38834 [facility] GARCIA OBTAINING 9 [facility] SPEC INC INC AEROSOL INDUCED TX SPX [facility] G0378 [facility] GARCIA OBSERVATI 9 [facility] ON INC INC SERVICE PER HOUR AMB A0427 [facility] SERVICE 9 [facility]ANCE AMBULANCE EMERGENCY SERVICE SERVICE TRANSPORT LEVEL 1 ECG 93317 [facility] LIN ROUTINE 9 [facility] W/LEAST PROF SERV 12 LDS I&R ONLY GROUND A0425 [facility] MILEAGE 9 CO CO PER AMBULANCE AMBULANCE STATUTE SERVICE SERVICE MILE CREATINE 57128 RAD[facility] GARCIA KINASE 9 [facility] TOTAL INC INC CREATINE 88162 [facility] GARCIA KINASE MB 9 [facility] FRACTION INC INC ONLY BASIC 82757 [facility] GARCIA METABOLIC 9 [facility] PANEL INC INC CALCIUM TOTAL IAADI 27268 [facility] G[facility]IA INFLUENZA 9 [facility] B VIRUS INC INC IAADI 33938 [facility] GARCIA INFFLUENZ 9 [facility] A A VIRUS INC INC BLOOD 90212 [facility] GARCIA COUNT 9 [facility] COMPLETE INC INC AUTO&[place] [address] RAD[facility] GARCIA TROPONIN 9 [facility] QUANTITAT INC INC COLE NATRIURET 87824 [facility] GARCIA IC 9 [facility] PEPTIDE INC INC ECG 76799 [facility] GARCIA ROUTINE 9 [facility] ECG INC INC W/LEAST 12 LDS TRCG ONLY W/O I&R RADIOLOGI 02679 [facility] GARCIA C 9 [facility] EXAMINATI INC INC ON CHEST SINGLE VIEW FRONTAL PRTBLE E0431 PULMONARY PULMONARY GASEOUS 9 PARTNERS PARTNERS [employer] LLC RENT; FLWMTR HUMIDFR&M ASK O2 CONC 1 E1390 PULMONARY PULMONARY DEL PORT 9 PARTNERS PARTNERS 85%/>02 LLC LLC [place] [address] THYROID 9 ALEX ALEX STIMULATI NG MEDICALCE MEDICAL[place] [address] FREE 9 ALEX ALEX THYROXINE MEDICALCE MEDICALCE NTER NTER HEMOGLOBI [address] N 9 ALEX ALEX GLYCOSYLA MARLYN A1C MEDICALCE MEDICALCE NTER NTER BLD GLU A4253 [facility] TEST/REAG 9 MEDICAL MEDICAL T STRIPS SUPPLY SUPPLY HOME BLD GLU MON-50 BLD GLU A4253 DIABETES DIABETES TEST/REAG 9 [facility] CARE CLUB T [facility] LLC HOME BLD GLU MON-50 NORMAL A4256 DIABETES DIABETES LOW AND 9 [facility]ARE [facility] HIGH [facility] CALIBRATO R SOLUTION/ CHIPS REPL ANGELIC A4235 DIABETES DIABETES LITHIUM 9 [facility] CARE [facility] MED NECES [facility] CHANTAL BG MON OWN PT EA LANCETS A4259 DIABETES DIABETES PER BOX 9 CARE CL[facility] CARE CLUB OF 100 [facility] OBSERVATI 25395 [facility] [place] ON CARE 9 [facility]PE[facility] JR, DISCHARGE INTERNAL [facility]HI [facility] T PRESSURIZ 03161 [facility] GARCIA ED/NONPRE 9 [facility] SSURIZED INC INC INHALATIO N TREATMENT NONINVASI 47532 [facility] GARCIA VE 9 [facility] EAR/PULSE INC INC OXIMETRY SINGLE DETER GLUC BLD 54749 RAD[facility] GARCIA GLUC MNTR 9 [facility] DEV INC INC CLEARED FDA SPEC HOME USE GLUC BLD 23315 RAD[facility] GARCIA GLUC MNTR 9 [facility] DEV INC INC CLEARED FDA SPEC HOME USE RADIOLOGI 50335 [facility] GARCIA C 9 [facility] EXAMINATI INC INC ON CHEST SINGLE VIEW FRONTAL ECG 27916 [facility] GARCIA ROUTINE 9 [facility] ECG INC INC W/LEAST 12 LDS TRCG ONLY W/O I&R BLOOD 02075 [facility] GARCIA COUNT 9 [facility] COMPLETE INC INC AUTO&[place] [address] RADHA GARCIA TROPONIN 9 [facility] HOSP QUANTITAT INC INC COLE BASIC 13681 RADHA GARCIA METABOLIC 9 [facility]OS[facility] PANEL INC INC CALCIUM TOTAL CREATINE 98837 RADHA GARCIA KINASE MB 9 [facility] FRACTION INC INC ONLY CREATINE 04038 [facility] GARCIA KINASE 9 [facility] TOTAL INC INC COLLECTIO 18308 RADHA GARCIA N VENOUS 9 [facility] BLOOD INC INC VENIPUNCT URE THERAPEUT 18617 [facility] GARCIA IC 9 [facility] HOSP INJECTION INC INC IV PUSH EACH NEW DRUG PRESSURIZ 69121 [facility] GARCIA ED/NONPRE 9 [facility] HOSP SSURIZED INC INC INHALATIO N TREATMENT ECG 30038 RADHA LIN ROUTINE 9 [facility] W/LEAST PROF SERV 12 LDS I&R ONLY INITIAL 18244 [facility] [place] OBSERVATI 9 [facility] ON [facility]PITAL CARE/DAY MED 30 MINUTES THER 54779 [facility] GARCIA PROPH/DX 9 [facility] HOSP NJX IV INC INC PUSH SINGLE/1S T SBST/DRUG HOSPITAL G0378 [facility] GARCIA OBSERVATI 9 [facility] ON INC INC SERVICE PER HOUR THERAPEUT 70727 CARL[facility] ART[facility] IC 9 MEDICAL VIRAL PROPHYLAC GROUP TIC/DX INJECTION SUBQ/IM RADIOLOGI [address] C EXAM [address] VIEWS FRONTAL&L ATERAL IIV3 17277 [facility], VACCINE 9 MEDICAL VIRAL SPLIT GROUP VIRUS 0.5 ML DOSAGE IM USE COLLECTIO 23359 [facility] N VENOUS 9 MEDICAL VIRAL BLOOD GROUP VENIPUNCT URE COMPREHEN [address] SIVE 9 [facility] METABOLIC PANEL MEDICALCE MEDICALCE NTER NTER BILIRUBIN [address] DIRECT 9 ALEX ALEX MEDICALRAJINDER MEDICALCE NTER NTER ECG 06236 CARLOS ARTEAGA, ROUTINE 9 MEDICAL VIRAL ECG GROUP W/LEAST 12 LDS W/I&[place] [address] THYROID 9 [facility] STIMULATI NG MEDICALCE MEDICALCE HORMONE NTER NTER TSH INJECTION J1040 CARLOS ARTEAGA, 9 MEDICAL VIRAL METHYLPRE GROUP DNISOLONE ACETATE 80 MG ADMINISTR G0008 [facility], ATION OF 9 MEDICAL VIRAL INFLUENZA GROUP VIRUS VACCINE ELECTRIC E0215 DIABETES DIABETES HEAT PAD 9 CARE CLUB CARE CLUB [facility] LLC THERAPEUT 73774 CARLOS ARTEAGA, IC 9 MEDICAL VIRAL PROPHYLAC GROUP TIC/DX INJECTION SUBQ/IM PO A4258 [facility] 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 9 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 SUPPLY SUPPLY FOR LANCET EACH NORMAL A4256 [facility] LOW AND 9 MEDICAL MEDICAL HIGH SUPPLY SUPPLY CALIBRATO R SOLUTION/ CHIPS BLD GLU A4253 [facility] TEST/REAG 9 MEDICAL MEDICAL T STRIPS SUPPLY SUPPLY HOME BLD GLU MON-50 THERAPEUT 40616 Ellis PRECIADO IC 9 MEDICAL J PROPHYLAC GROUP TIC/DX INJECTION SUBQ/IM LIPID [address] PANEL 9 ALEX ALEX MEDICALRAJINDER MEDICALCE NTER NTER HEMOGLOBI [address] N 9 [facility] GLYCOSYLA MARLYN A1C MEDICALCE MEDICALCE NTER NTER INJECTION J1040 Ellis PRECIADO 9 MEDICAL J METHYLPRE GROUP DNISOLONE ACETATE [address] B[address] COUNT 9 [facility] COMPLETE AUTO&AUTO MEDICALCE MEDICAL[place] [address] FREE 9 [facility] THYROXINE [place] [address] THYROID 9 ALEX ALEX STIMULATI NG MEDICALCE MEDICALCE HORMONE NTER NTER TSH BILIRUBIN [address] DIRECT 9 ALEX ALEX MEDICALCE MEDICALCE NTER NTER COMPREHEN [address] SIVE 9 ALEX ALXE METABOLIC PANEL MEDICALCE MEDICALCE NTER NTER CREATINE 32618 [facility] GARCIA KINASE 9 [facility] TOTAL INC INC CREATINE 27466 RADHA GARCIA KINASE MB 9 [facility] FRACTION INC INC ONLY COLLECTIO 95639 RAD[facility] GARCIA N VENOUS 9 [facility] BLOOD INC INC VENIPUNCT URE ECG 67199 RADHA GARCIA ROUTINE 9 [facility] ECG INC INC W/LEAST 12 LDS TRCG ONLY W/O I&R BASIC 45514 RAD[facility] GARCIA METABOLIC 9 [facility] PANEL INC INC CALCIUM TOTAL BLOOD 73044 [facility] GARCIA COUNT 9 [facility] COMPLETE INC INC AUTO&[place] [address] RAD[facility] GARCIA TROPONIN 9 [facility] QUANTITAT INC INC COLE RADIOLOGI 10699 [place] [facility] JAUREGUI EXAMINATI IMAGING ON CHEST ASSOCIATE SINGLE S VIEW FRONTAL GLUC BLD 31580 RADHA GARCIA GLUC MNTR 9 [facility] DEV INC INC CLEARED FDA SPEC HOME USE THER 83825 RAD[facility] GARCIA PROPH/DX 9 [facility] NJX IV INC INC PUSH SINGLE/1S T SBST/DRUG ECG 43500 RADHA DRISCOLL ROUTINE 9 [facility] W/LEAST PROF SERV 12 LDS I&R ONLY INITIAL 08330 JOSE ALFREDO HDEZ 9 INDIRA Navarro ON INTERNAL CARE/DAY MED 30 MINUTES THERAPEUT 05627 [facility] GARCIA IC 9 [facility] INJECTION INC INC IV PUSH EACH [facility] G0378 [facility] GARCIA OBSERVATI 9 [facility] ON INC INC SERVICE PER HOUR PORTABLE E0443 PULMONARY PULMONARY O2 9 PARTNERS PARTNERS CONTENTS LLC LLC GASEOUS 1 MO SUPPLY=1 UNIT O2 CONC 1 E1390 PULMONARY PULMONARY DEL PORT 8 PARTNERS PARTNERS 85%/>02 LLC LLC CONC AT PRS FLW RATE PRTBLE E0431 PULMONARY PULMONARY GASEOUS 8 PARTNERS PARTNERS [employer] [facility] [facility] RENT; FLWMTR HUMIDFR&M ASK BLD GLU A4253 AM MED AM MED TEST/REAG 8 DIRECT DIRECT T [facility]IPS LLC LLC HOME BLD PHARMACY PHARMACY GLU MON-50 LANCETS A4259 AM MED AM MED PER BOX 8 DIRECT DIRECT OF 100 LLC [facility] PH[facility]ACY PHARMACY PRTBLE E0431 PULMONARY PULMONARY GASEOUS 8 PARTNERS PARTNERS [facility] [facility] LLC RENT; FLWMTR HUMIDFR&M ASK O2 CONC 1 E1390 PULMONARY PULMONARY DEL PORT 8 PARTNERS PARTNERS 85%/>02 LLC LLC CONC AT PRS FLW RATE ECG 33732 RADHA GARCIA ROUTINE 8 [facility] ECG INC INC W/LEAST 12 LDS TRCG ONLY W/O I&[place] [address] RADHA GARCIA TROPONIN 8 [facility]OS[facility] QUANTITAT INC INC COLE GLUC BLD 74721 RADHA GARCIA GLUC MNTR 8 [facility] DEV INC INC CLEARED FDA SPEC HOME USE ALBUTEROL J7620 PULMO PULMO TO 2.5 8 DOSE DOSE MG & PHARMACY PHARMACY IPRATROPI UM BROM TO 0.5 MG COLLECTIO 80920 RADHA GARCIA N VENOUS 8 [facility] HOSP BLOOD INC INC VENIPUNCT URE ADMN SET A7005 PULMO PULMO W/SM VOL 8 DOSE DOSE NONFILTR PHARMACY PHARMACY NEBULIZR NON-DISPB L CREATINE 69664 RADHA GARCIA KINASE 8 [facility] TOTAL INC INC CREATINE 05454 RADHA GARCIA KINASE MB 8 [facility] FRACTION INC INC ONLY PHRM Q0514 PULMO PULMO DISPENSIN 8 DOSE DOSE G FEE PHARMACY PHARMACY INHALATIO N RX; PER 90 DAYS ECG 90249 RADHA DRISCOLL, ROUTINE 8 [facility] W/LEAST PROF SERV 12 LDS I&R ONLY OBSERVATI 10686 [facility] JINAMORGAN, ON CARE 8 [facility] A DISCHARGE INTERNAL MED [facility] HOSPITAL G0378 RADHA GARCIA OBSERVATI 8 [facility] ON INC INC SERVICE PER HOUR THER 96781 RADHA GARCIA PROPH/DX 8 [facility] NJX EA INC INC SEQL IV PUSH SBST/DRUG ECG 03891 RADHA DRISCOLL ROUTINE 8 [facility] W/LEAST PROF SERV 12 LDS I&R ONLY BLOOD 79601 RADHA GARCIA COUNT 8 [facility] COMPLETE INC INC AUTO&AUTO DIFRNTL WBC RADIOLOGI 43267 RADHA GARCIA C 8 [facility] EXAMINATI INC INC ON CHEST SINGLE VIEW FRONTAL INITIAL 84562 JOSE ALFREDO GONG 8 [facility] ON INTERNAL CARE/DAY MED 30 MINUTES NONINVASI 89593 RADHA GARCIA VE 8 [facility] EAR/PULSE INC INC OXIMETRY SINGLE DETER PRESSURIZ 19598 RADHA GARCIA ED/NONPRE 8 [facility] SSURIZED INC INC INHALATIO N TREATMENT CREATINE 09302 RADHA GARCIA KINASE 8 [facility] TOTAL INC INC CREATINE 37961 RADHA GARCIA KINASE MB 8 [facility] FRACTION INC INC ONLY INJECTION J2405 RADHA GARCIA 8 [facility] ONDANSETR INC INC ON HCL PER 1 MG COLLECTIO 16565 RADHA GARCIA N VENOUS 8 [facility] BLOOD INC INC VENIPUNCT URE THER 22314 RADHA GARCIA PROPH/DX 8 [facility] NJX IV INC INC PUSH 1ST SBST/DRUG BASIC 15947 RADHA GARCIA METABOLIC 8 [facility] PANEL INC INC CALCIUM TOTAL NATRIURET 38969 RADHA GARCIA IC 8 [facility] [place] [address] RADHA GARCIA TROPONIN 8 [facility] QUANTITAT INC INC COLE CULTURE 59521 RADHA GARCIA BACTERIAL 8 [facility] BLOOD INC INC AEROBIC W/ID ISOLATES ECG 21870 RADHA GARCIA ROUTINE 8 [facility] ECG INC INC W/LEAST 12 LDS TRCG ONLY W/O I&R GLUC BLD 65843 RADHA GARCIA GLUC MNTR 8 [facility] DEV INC [place] [address] RADHA GARCIA HEAD/BRAI 8 [facility] N W/O INC INC CONTRAST MATERIAL O2 CONC 1 [id number] PULMONARY PULMONARY DEL PORT 8 [employer] 85%[employer] CONC AT PRSC FLW RATE THER 12719 RADHA GARCIA PROPH/DX 8 [facility] NJX INC INC SUBQ/IM PRTBLE E0431 PULMONARY PULMONARY GASEOUS 8 [facility] O2 SYS [facility] RENT; FLWMTR HUMIDFR&M ASK 3D 49411 RADHA GARCIA RENDERING 8 [facility] W/INTERP INC INC & POSTPROCE [place] ECG [address] [place], ROUTINE 8 [facility] ECG VASCULAR W/LEAST ASSOC 12 LDS W/I&R ECHO 98608 RADHA GARCIA TRANSTHOR 8 [facility] AC R-T 2D INC INC W/WO M-MODE REC COMP DOP 73338 RADHA GARCIA ECHOCARD 8 [facility] COLOR INC INC FLOW VELOCITY MAPPING DOPPLER 28508 RADHA GARCIA ECHOCARD 8 [facility] PULSE INC INC WAVE W/SPECTRA L DISPLAY ECG 24742 RADHA LIN ROUTINE 8 [facility] F W/LEAST PROF SERV 12 LDS I&R ONLY RADEX 28293 [place], SHOULDER 8 MEDICAL JACKI P COMPLETE IMAGING MINIMUM 2 ASSOCIATE VIEWS S RADIOLOGI [id number] [facility] C 8 MEDICAL MEDICAL EXAMINATI IMAGING IMAGING ON CHEST ASSOCIATE ASSOCIATE SINGLE S S VIEW FRONTAL ECG 65827 RADHA LIN ROUTINE 8 [facility] SHRUTHI F W/LEAST PROF SERV 12 LDS I&R ONLY PRTBLE E0431 PULMONARY PULMONARY GASEOUS 8 PARTNERS PARTNERS [employer] [facility] RENT; FLWMTR HUMIDFR&M ASK O2 CONC 1 E1390 PULMONARY PULMONARY DEL PORT 8 PARTNERS PARTNERS 85%/>02 LLC LLC CONC AT PRSC FLW RATE TUBING A7037 VALENTINA MONTGOMERY USED WITH 8 HOME HOME POSITIVE MEDICAL MEDICAL AIRWAY EQUIPMENT EQUIPMENT PRESSURE DEVICE THER 45557 RADHA GARCIA PROPH/DX 8 [facility] NJX INC INC SUBQ/IM NASL A7034 CYNCLEM MONTGOMERY INTRFCE 8 HOME HOME POS [facility] PRSS EQUIPMENT EQUIPMENT DEVC W/WO HEAD STRAP HEADGEAR A7035 CYNCLEM [facility] USED 8 HOME HOME W/POSITIV MEDICAL MEDICAL E AIRWAY EQUIPMENT EQUIPMENT PRESSURE DEVICE FILTER A7039 CYNCLEM [facility] NON 8 HOME HOME DISPBL MEDICAL MEDICAL USED EQUIPMENT EQUIPMENT W/POS ARWAY PRESS DEVICE CREATINE 28978 RADHA GARCIA KINASE MB 8 [facility] FRACTION INC INC ONLY CREATINE 52652 RADHA GARCIA KINASE 8 [facility] TOTAL INC INC BASIC 13361 RADHA GARCIA METABOLIC 8 [facility] [place] [address] RADHA GARCIA TROPONIN 8 [facility] QUANTITAT INC INC COLE BLOOD 61742 RADHA GARCIA COUNT 8 [facility] COMPLETE INC INC AUTO&AUTO DIFRNTL WBC ECG 00414 RADHA GARCIA ROUTINE 8 [facility] ECG INC INC W/LEAST 12 LDS TRCG ONLY W/O I&R RADIOLOGI 75497 Catrachita [place] 8 MEDICAL BLAINE EXAMINATI IMAGING ON CHEST ASSOCIATE [place] NFUS 09978 RADHA GARCIA THER 8 [facility] PROPH/[place] [address] RADHA GARCIA THER 8 [facility] PROPH/DX INC INC 1ST >1 HR ECG 90873 RADHA LIN ROUTINE 8 [facility] W/LEAST PROF SERV 12 LDS I&R ONLY GROUND A0425 ABHISHEK WEISS MILEAGE 8 CO CO PER AMBULANCE AMBULANCE STATUTE SERVICE SERVICE MILE AMBULANCE A0429 ABHISHEK ABHISHEK SERVICE 8 CO CO BLS AMBULANCE AMBULANCE EMERGENCY SERVICE SERVICE TRANSPORT THER 11447 RADHA GARCIA PROPH/DX 8 [facility] NJX EA INC INC SEQL IV PUSH SBST/DRUG O2 CONC 1 E1390 PULMONARY PULMONARY DEL PORT 8 PARTNERS PARTNERS 85%/>02 LLC LLC CONC AT PRSC FLW RATE PRTBLE E0431 PULMONARY PULMONARY GASEOUS 8 PARTNERS PARTNERS [employer] RENT; FLWMTR HUMIDFR&M ASK INJECTION J0696 CARLOS MAHARAJSTACEY Ellis 8 MEDICAL J CEFTRIAXO GROUP NE SODIUM PER 250 MG INJECTION J1040 CARLOS MAHARAJSTACEY Ellis 8 MEDICAL J METHYLPRE GROUP DNISOLONE ACETATE 80 MG THER 17468 CARLOS MAHARAJSTACEY Ellis PROPH/DX 8 MEDICAL J NJX GROUP SUBQ/IM PRTBLE E0431 PULMONARY PULMONARY GASEOUS 8 PARTNERS PARTNERS [employer] [facility] RENT; FLWMTR HUMIDFR&M ASK O2 CONC 1 E1390 PULMONARY PULMONARY DEL PORT 8 PARTNERS PARTNERS 85%/>02 [facility] CONC AT PRSC FLW RATE INJECTION J0696 [facility] 8 MEDICAL MEDICAL CEFTRIAXO GROUP GROUP NE SODIUM PER 250 MG THER 18572 [facility] PROPH/DX 8 MEDICAL MEDICAL NJX GROUP GROUP SUBQ/IM BASIC 76362 RADHA GARCIA METABOLIC 8 [facility] PANEL INC INC CALCIUM TOTAL CREATINE 45809 RADHA GARCIA KINASE 8 [facility] TOTAL INC INC CREATINE 11472 RADHA GARCIA KINASE MB 8 [facility] FRACTION INC INC ONLY COLLECTIO 65695 RADHA GARCIA N VENOUS 8 [facility] [place] [address] RADHA GARCIA TROPONIN 8 [facility] QUANTITAT INC INC COLE BLOOD 04093 RADHA GARCIA COUNT 8 [facility] COMPLETE INC INC AUTO&AUTO DIFRNTL WBC ECG 13788 RADHA GARCIA ROUTINE 8 [facility] ECG INC INC W/LEAST 12 LDS TRCG ONLY W/O I&R GLUC BLD 40778 RADHA GARCIA GLUC MNTR 8 [facility] DEV INC INC CLEARED FDA SPEC HOME USE ECG 43939 RADHA ROD, ROUTINE 8 [facility] W/LEAST PROF SERV 12 LDS I&R ONLY ECG 85309 RADHA GARCIA ROUTINE 8 [facility] ECG INC INC W/LEAST 12 LDS I&R ONLY CPAP 32433 RADHA GARCIA VENTILATI 8 [facility] ON CPAP INC INC INITIATIO N&MGMT GROUND A0425 [facility] AMBULANCE AMBULANCE PER SERVICE SERVICE STATUTE MILE INITIAL 56639 [place] JOSE ALFREDO ROD 8 [facility] INTERNAL [facility]ARE/DAY MED 30 MINUTES THER 64991 RADHA GARCIA PROPH/DX 8 [facility] NJX EA INC INC SEQL IV PUSH SBST/DRUG HOSPITAL G0378 RADHA GARCIA OBSERVATI 8 [facility] ON INC INC SERVICE PER HOUR AMB A0427 [facility] SERV[facility] 8 AMBULANCE AMBULANCE ALS SERVICE SERVICE EMERGENCY TRANSPORT LEVEL 1 GLUC BLD 12370 RADHA GARCIA GLUC MNTR 8 [facility] DEV INC INC CLEARED FDA SPEC HOME USE RADIOLOGI 66362 RADHA GARCIA C 8 [facility] EXAMINATI INC INC ON CHEST SINGLE VIEW FRONTAL URNLS DIP 67334 RADHA GARCIA 8 [facility] STICK/TAB INC INC LET REAGENT AUTO MICROSCOP Y ECG 31584 RADHA GARCIA ROUTINE 8 [facility] ECG INC INC W/LEAST 12 LDS TRCG ONLY W/O I&R BLOOD 76624 RADHA GARCIA COUNT 8 [facility] COMPLETE INC INC AUTO&AUTO DIFRNTL WBC SUSCEPTIB 86899 RADHA GARCIA LTY STDY 8 [facility] ANTIMICRB INC INC IAL MICRO/[place] [address] RADHA GARCIA TROPONIN 8 [facility] QUANTITAT INC INC COLE CREATINE 04051 RADHA GARCIA KINASE 8 [facility] TOTAL INC INC CREATINE 79265 RADHA GARCIA KINASE MB 8 [facility] FRACTION INC INC ONLY CULTURE 37397 RADHA RADHA BACTERIAL 8 [facility] INC INC QUANTTATI VE COLONY COUNT URINE BASIC 45788 RADHA GARCIA METABOLIC 8 [facility] PANEL INC INC CALCIUM TOTAL THER 53381 RADHA GARCIA PROPH/DX 8 [facility] NJX IV INC INC PUSH 1ST SBST/DRUG PROTHROMB 32535 RADHA RADHA IN TIME 8 [facility] INC INC PRTBLE E0431 PULMONARY PULMONARY GASEOUS 8 PARTNERS PARTNERS [employer] RENT; FLWMTR HUMIDFR&M ASK O2 CONC 1 E1390 PULMONARY PULMONARY DEL PORT 8 PARTNERS [facility] 85%/>02 LLC LLC CONC AT [facility] FLW RATE Encounters Encounter Start End Date Code Location Performer Type Date [facility]OSPITAL ST - OTHER 0 [address] [facility] ACCESS 0 0 [facility] ACCESS 0 0 [facility] OFFICE 95797 NICOLAS HEARD 9 9 MEDICAL VIRAL T VISIT GROUP 25 MINUTES OFFICE 01941 NICOLAS HDEZ 9 9 [facility] T VISIT INTERNAL 25 MED MINUTES EMERGENCY 20753 TOMASZ LOPEZ, DEPT 9 9 EMERGENCY ABDULAZIZ S VISIT SERVICES HIGH SEVERITY& ASSOCIATE THREAT S [facility] RADHA - 9 9 [facility] OUTPATIEN INC T EMERGENCY 92566 RADHA 9 9 [facility] DEPARTMEN INC T VISIT HIGH/URGE NT [facility] 9 9 [facility] OFFICE 66803 [facility] ART[facility], OUTPATIEN 9 9 MEDICAL VIRAL T VISIT GROUP 25 MINUTES EMERGENCY 09871 RADHA DEPT 9 9 [facility] VISIT INC HIGH SEVERITY& THREAT [facility] RADHA - 9 9 [facility] OUTPATIEN INC T OFFICE 02515 [facility] OUTPATIEN 9 9 MEDICAL VIRAL T VISIT GROUP [address] - OTHER 9 9 [facility] NTER OFFICE 86014 [facility] OUTPATIEN 9 9 MEDICAL VIRAL T VISIT GROUP 25 MINUTES [facility] OTHER 9 9 [facility] NTER OFFICE 38656 [facility] BETANCUR OUTPATIEN 9 9 MEDICAL J T VISIT GROUP [address] 9 9 [facility] T VISIT MODERATE SEVERITY CRITICAL ST ACCESS [address] [facility] RADHA - 9 9 [facility] OUTPATIEN INC T EMERGENCY 75270 MARGA LOPEZ, DEPT 9 9 [facility] VISIT CORPORATI HIGH ON SEVERITY& THREAT [facility] RADHA - 8 8 [facility] OUTPATIEN INC T EMERGENCY 97849 RADHA 8 8 [facility] DEPARTMEN INC T VISIT HIGH/URGE NT SEVERITY EMERGENCY 50244 MARGA NEWSOME, DEPT 8 8 [facility] VISIT CORPORATI HIGH ON SEVERITY& THREAT [facility] EMERGENCY 57041 MARGA NEWSOME, 8 8 [facility] DEPARTMEN CORPORATI T VISIT ON HIGH/URGE NT SEVERITY EMERGENCY 60421 RADHA 8 8 [facility] DEPARTMEN INC T VISIT LOW/MODER SEVERITY [facility]OSPITAL RADHA - 8 8 [facility] OUTPATIEN INC T OFFICE 76410 MORELIA HACKETTNICOLAS DURAN 8 8 [facility] T VISIT VASCULAR 15 ASSOC MINUTES OFFICE 04613 MORELIA FRENCH CONSULTAT 8 8 [facility] Y ION VASCULAR NEW/ESTAB ASSOC PATIENT 30 MIN HOSPITAL RADHA - 8 8 [facility] OUTPATIEN INC T EMERGENCY 45791 RADHA JIN, [address] [facility] T VISIT PROF SERV HIGH/URGE NT SEVERITY EMERGENCY 04228 RADHA DE LA CRUZ, 8 8 [facility] T VISIT PROF SERV LOW/MODER SEVERITY EMERGENCY 05521 RADHA 8 8 [facility] T VISIT LIMITED/M [facility]OR [facility] RADHA - 8 8 [facility] OUTPATIEN INC T EMERGENCY 71787 RADHA 8 8 [facility] T VISIT HIGH/URGE NT SEVERITY HOSPITAL RADHA - 8 8 [facility] OUTPATIEN INC T OFFICE 88666 Ellis PRECIADO 8 8 MEDICAL J T VISIT GROUP 25 MINUTES OFFICE 22350 [place] CARLOS VALENZUELA 8 8 MEDICAL MEDICAL T VISIT GROUP GROUP 25 MINUTES EMERGENCY 33027 RADHA DEPT 8 8 [facility] VISIT INC HIGH SEVERITY& THREAT [facility] RADHA - 8 8 [facility] OUTPATIEN INC T
--- OUTSIDE RECORDS SUMMARY | 2016-11-09 17:31 | External Medical Summary Rpt ---
Author Author GEREMIAS Duarte, [employer] Organization [employer] Address Unknown Phone Unavailable
--- OUTSIDE RECORDS SUMMARY | 2016-11-09 17:31 | External Medical Summary Rpt ---
Demographics Preferred Language Nicaraguan Marital Status Unknown Mormon Affiliation Unknown Race Unknown Ethnic Group Unknown Author Author , GEREMIAS ARCHULETA Address Unknown Phone Immunization Unable to retrieve immunization data due to connection failure with Immunization Registry. Please try again later.
--- OUTSIDE RECORDS SUMMARY | 2016-11-09 17:31 | External Medical Summary Rpt ---
Author Author , GEREMIAS Gleason GEREMIAS Address Unknown Phone [email or web address] Care Team Providers Care Systems Administration Analyst Name Role Phone [facility] Unavailable Unavailable PHARMACY, [facility] AYARAM, Unavailable Unavailable LY VÁZQUEZ, Unavailable Unavailable LY ROD [facility] Unavailable Unavailable SERVICE, [facility] JUVENTINOBLAINE NOBLES, Unavailable Unavailable JUVENTINOBLAINE [facility] Un[facility] MEDICAL EQUIPMENT, [facility] Un[facility] Unavailable LLC, [facility] ABDULAZIZ LOPEZ, Unavailable Unavailable ABDULAZIZ LOPEZ RONDAL E, Unavailable Unavailable [facility] Unavailable Unavailable INC, [facility] Unavailable Unavailable INC, [facility] SUZY DRISCOLL HARVEY, Unavailable Unavailable [facility] Unavailable Unavailable [facility], [facility] Unavailable Unavailable SUPPLY, [facility] [facility] SHRUTHI LIN JR Unavailable Unavailable [...] FRENCH JEFFREY L, Unavailable Unavailable FEROZ PAIGE [facility] Unavailable Unavailable [facility] Unavailable Unavailable MEDICALCARY, [facility], Unavailable Unavailable [facility] FEROZ JIN, Unavailable Unavailable FEROZ JIN Continuity of Care Document - 06-26-2007 through 2016 Problems Code Diagnosis DOS Provider Status 2449 UNSPECIFIED 05-12-2009 [facility] [place] [address] DIAB W/O 04-28-2009 [facility] COMP TYPE ASSOCIATES II/UNS NOT PSC STATED UNCNTRL 4660 ACUTE 04-28-2009 [facility] BRONCHITIS [facility] PSC 515 POSTINFLAMM 04-28-2009 [facility] PULMONARY [facility] FIBROSIS 81135 SHORTNESS 04-28-2009 [facility] OF BREATH ASSOCIATES PSC 7931 NONSPEC 04-28-2009 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-16-2009 [facility] INTERVERTEB GROUP RAL DISC SITE UNSPEC 7291 UNSPECIFIED 02-04-2009 [facility] MYOSITIS MED 55230 OTHER 02-04-2009 [facility] FATIGUE INTERNAL MED 45289 OTHER CHEST 02-04-2009 [facility] PAIN [facility] INTERNAL MED 36910 MORBID 01-29-2009 [facility] 490 BRONCHITIS 01-29-2009 [facility]ITAL ACUTE OR PROF SERV CHRONIC 14044 ESOPHAGEAL 01-29-2009 [facility]UX [facility] 5859 CHRONIC 01-29-2009 [facility] UNSPECIFIED ASSOCIATES 57916 OTHER 01-29-2009 [facility] DYSPNEA AND EMERGENCY SERVICES [place] [address] CHEST PAIN 01-29-2009 [facility] PROF SERV 7906 OTHER 01-29-2009 [facility] ABNORM[facility] CO BLOOD AMBULANCE CHEMISTRY SERVICE V5867 LONG-TERM 01-29-2009 [facility] INSULIN INC V5869 LONG-TERM 01-29-2009 [place] [place] (CURRENT) [facility] USE OF HOSPITAL OTHER PROF SERV MEDICATIONS 7245 UNSPECIFIED 01-19-2009 [facility] 33331 DIAB W/O 01-05-2009 [facility] COMP TYPE I CARE CLUB [JUV] NOT LLC STATED UNCNTRL 33519 GENERALIZED 01-05-2009 [facility]STE[facility] LLC SIS UNSPECIFIED SITE 02277 OTHER 12-19-2008 [facility]RONIC [facility] PAIN INC 88519 NAUSEA WITH 12-19-2008 [facility] VOMITING [facility] INTERNAL MED 2766 FLUID 12-18-2008 [facility] 7336 TIETZES 12-18-2008 [facility] DISEASE [facility] V0481 NEED 12-18-2008 [facility] PROPHYLACTI MEDICAL C GROUP VACCINATION &INOCULATIO N FLU 15194 DIAB 11-19-2008 [facility] W/NEURO MEDICAL MANIFESTS GROUP TYPE II/UNS NOT UNCNTRL 3572 POLYNEUROPA 11-19-2008 [facility] THY IN MEDICAL DIABETES GROUP 6929 CONTACT 10-17-2008 [facility] DERMATITIS& MEDICAL OTHER GROUP ECZEMA DUE UNSPEC CAUSE 25347 PAIN IN 08-19-2008 [facility] JOINT, MEDICAL SHOULDER GROUP REGION 78391 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 2724 OTHER AND 06-05-2008 [facility] UNSPECIFIED [facility] INC HYPERLIPIDE DAVID 5939 UNSPECIFIED 06-05-2008 [facility] DISORDER 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 97479 PRECORDIAL 06-05-2008 [employer] PAIN [employer] 04048 OBSTRUCTIVE 02-08-2008 [facility] CHRON[facility] PHARMACY BRONCHITIS WITHOUT EXACERBAT 90447 OBST 02-08-2008 [facility] CHRONIC VALLEY BRONCHITIS INTERNAL W/ACUTE MED BRONCHITIS 16933 WHEEZING 02-07-2008 [employer] 79320 MIGRAINE 01-26-2008 [employer] UNSP W/O [employer] INTRACT W/O [employer] STATUS MIGRAINOSUS 7840 HEADACHE 01-26-2008 [facility] 72090 OBSTRUCTIVE 09-24-2007 [facility] 3540 CARPAL 08-07-2007 [facility] TUNNEL [facility]ICAL SYNDROME GROUP 4619 ACUTE 08-07-2007 [facility] SINUSITIS, MEDICAL UNSPECIFIED GROUP 4779 ALLERGIC 08-07-2007 [facility] RHINITIS MEDICAL CAUSE GROUP UNSPECIFIED 72019 OSTEOARTHRO 08-07-2007 [facility] SIS UNSPEC MEDICAL WHETHER GROUP GEN/LOC LOWER LEG 412 OLD 06-28-2007 [facility]OCARDIAL [facility] INFARCTION INC 10261 COR 06-28-2007 [facility]THEROS[facility]ERO [facility] UNSPEC INC TYPE VESSEL MARSHALL/JHON T 17031 OSTEOARTHRO 06-28-2007 [facility] S UNSPEC [facility]OS[facility] [...] Procedure DOS Code Location Performer Comment COLLECTIO [address] N VENOUS 0 [facility] BLOOD VENIPUNCT MEDICAL[place] [address] FREE 0 [facility] THYROXINE MEDICALCE MEDICALCE NTER NTER BASIC [address] METABOLIC 0 [facility] PANEL CALCIUM MEDICALCE MEDICALCE TOTAL NTER NTER BLOOD [address] COUNT 0 [facility] COMPLETE AUTO&AUTO MEDICALCE MEDICAL[place] [address] THYROID 0 [facility] STIMULATI NG MEDICALCE MEDICALCE HORMONE NTER NTER TSH CT THORAX 16300 RADIOLOGY SCHMITTER 0 , FEROZ W/DANA ASSOCIATE L T S [facility] MATERIAL CREATININ 40711 [facility] E BLOOD 0 [facility] COLLECTIO [address] N VENOUS 0 [facility] VENIPUNCT URE RADIOLOGI 36010 RADIOLOGY COLTEN, C EXAM 0 LY R CHEST 2 ASSOCIATE VIEWS S PSC FRONTAL&L ATERAL PRTBLE E0431 PULMONARY PULMONARY GASEOUS 9 PARTNERS PARTNERS [employer] S[employer] LLC LLC RENT; FLWMTR HUMIDFR&M ASK O2 CONC 1 E1390 PULMONARY PULMONARY DEL PORT 9 PARTNERS PARTNERS 85%/>02 LLC LLC CONC AT [facility] FLW RATE INJECTION J0696 [facility] ARTEGAA, 9 MEDICAL VIRAL CEFTRIAXO GROUP NE SODIUM PER 250 MG THERAPEUT 41320 [facility] ART[facility]AGA, IC 9 MEDICAL VIRAL PROPHYLAC GROUP TIC/DX INJECTION SUBQ/IM O2 CONC 1 E1390 PULMONARY PULMONARY DEL PORT 9 PARTNERS PARTNERS 85%/>02 LLC LLC CONC AT [facility] FLW RATE THERAPEUT [address] ST ARTEAGA, IC 9 ALEX VIRAL PROPHYLAC TIC/DX PHYSICIAN INJECTION S SUBQ/IM PRESSURIZ 43563 [facility] GARCIA ED/NONPRE 9 [facility] SSURIZED INC INC INHALATIO N TREATMENT NONINVASI 39151 [facility] GARCIA VE 9 [facility] EAR/PULSE INC INC OXIMETRY SINGLE DETER GLUC BLD 79264 [facility] GARCIA GLUC MNTR 9 [facility] DEV INC INC CLEARED FDA SPEC HOME USE GLUC BLD 01927 [facility] GARCIA GLUC MNTR 9 [facility] DEV INC INC CLEARED FDA SPEC HOME USE ECG 58235 RADHA GARCIA ROUTINE 9 [facility] ECG INC INC W/LEAST 12 LDS TRCG ONLY W/O I&[place] [address] [facility] GARCIA TROPONIN 9 [facility]OSP QUANTITAT INC INC COLE SMR PRIM 15656 [facility] GARCIA SRC 9 [facility] GRAM/GIEM INC INC SA STAIN BCT FUNGI/RAKESH L BLOOD 85823 [facility] GARCIA COUNT 9 [facility] COMPLETE INC INC AUTO&AUTO DIFRNTL WBC CUL BACT 33827 [facility] GARCIA XCPT 9 [facility] URINE INC INC BLOOD/STO OL AEROBIC ISOL BASIC 14544 [facility] GARCIA METABOLIC 9 [facility] PANEL INC INC CALCIUM TOTAL COLLECTIO 21253 [facility] GARCIA N VENOUS 9 [facility] BLOOD INC INC VENIPUNCT URE CREATINE 47593 [facility] GARCIA KINASE MB 9 [facility] FRACTION INC INC ONLY CREATINE 88751 [facility] GARCIA KINASE 9 [facility] TOTAL INC INC NONINVASI 38000 [facility] GARCIA VE 9 [facility] EAR/PULSE [place] [address] RADHA GARCIA INFUSION 9 [facility] THERAPY/P INC INC ROPHYLAXI S /DX 1ST TO 1 HR THERAPEUT 23536 [facility] GARCIA IC 9 [facility] INJECTION INC INC IV PUSH EACH NEW DRUG PRESSURIZ 14073 [facility] GARCIA ED/NONPRE 9 [facility] SSURIZED [place] [address] RAD[facility] GARCIA INFUSION 9 [facility] THERAPY INC INC PROPHYLAX IS/DX EA HOUR ECG 80349 [facility] LIN ROUTINE 9 ED [facility] W/LEAST PROF SERV 12 LDS I&R ONLY SPUTUM 16168 [facility] GARCIA OBTAINING 9 [facility] SPEC INC INC AEROSOL INDUCED TX [facility] G0378 [facility] G[facility]IA OBSERVATI 9 [facility] ON INC INC SERVICE PER HOUR AMB A0427 [facility] SERVICE 9 CO CO ALS AMBULANCE AMBULANCE EMERGENCY SERVICE SERVICE TRANSPORT LEVEL 1 ECG 18340 [facility] LIN ROUTINE 9 ED [facility] W/LEAST PROF SERV 12 LDS I&R ONLY GROUND A0425 [facility] MILEAGE 9 CO CO PER AMBULANCE AMBULANCE STATUTE SERVICE SERVICE MILE CREATINE 03040 [facility] GARCIA KINASE 9 [facility] TOTAL INC INC CREATINE 60119 RAD[facility] GARCIA KINASE MB 9 [facility] FRACTION INC INC ONLY BASIC 39109 [facility] GARCIA METABOLIC 9 [facility] PANEL INC INC CALCIUM TOTAL IAADI 83397 [facility] G[facility]IA INFLUENZA 9 [facility] B VIRUS INC INC IAADI 89030 [facility] G[facility]IA INFFLUENZ 9 [facility] A A VIRUS INC INC BLOOD 82434 [facility] GARCIA COUNT 9 [facility] COMPLETE INC INC AUTO&[place] [address] RAD[facility] GARCIA TROPONIN 9 [facility] QUANTITAT INC INC COLE NATRIURET 66979 [facility] GARCIA IC 9 [facility] PEPTIDE INC INC ECG 49952 [facility] GARCIA ROUTINE 9 [facility] ECG INC INC W/LEAST 12 LDS TRCG ONLY W/O I&R RADIOLOGI 91347 [facility] GARCIA C 9 [facility] EXAMINATI INC INC ON CHEST SINGLE VIEW FRONTAL PRTBLE E0431 PULMONARY PULMONARY GASEOUS 9 PARTNERS PARTNERS [employer] LLC RENT; FLWMTR HUMIDFR&M ASK O2 CONC 1 E1390 PULMONARY PULMONARY DEL PORT 9 PARTNERS PARTNERS 85%/>02 LLC LLC [place] [address] THYROID 9 ALEX ALEX STIMULATI NG MEDICALCE MEDICAL[place] [address] FREE 9 ALEX ALEX THYROXINE MEDICALCE MEDICALCE NTER NTER HEMOGLOBI [address] N 9 ALEX ALEX GLYCOSYLA MARLYN A1C MEDICALCE MEDICALCE NTER NTER BLD GLU A4253 [facility] TEST/REAG 9 MEDICAL MEDICAL T STRIPS SUPPLY SUPPLY HOME BLD GLU MON-50 BLD GLU A4253 DIABETES DIABETES TEST/REAG 9 [facility] CARE CLUB T [facility] LLC LLC HOME BLD GLU MON-50 NORMAL A4256 DIABETES DIABETES LOW AND 9 [facility] CARE CL[facility] HIGH [facility] CALIBRATO R SOLUTION/ CHIPS REPL ANGELIC A4235 DIABETES DIABETES LITHIUM 9 [facility] CARE CLUB MED NECES [facility] CHANTAL BG MON OWN PT EA LANCETS A4259 DIABETES DIABETES PER BOX 9 CARE [facility] CARE CLUB OF 100 [facility] OBSERVATI 95841 [facility] [place] ON CARE 9 [facility] JR, DISCHARGE INTERNAL SHRUTHI MANN [facility] T PRESSURIZ 51876 [facility] GARC[facility] ED/NONPRE 9 [facility] SSURIZED INC INC INHALATIO N TREATMENT NONINVASI 60862 [facility] G[facility]IA VE 9 [facility] EAR/PULSE INC INC OXIMETRY SINGLE DETER GLUC BLD 38817 [facility] GARCIA GLUC MNTR 9 [facility] DEV INC INC CLEARED FDA SPEC HOME USE GLUC BLD 20336 RAD[facility] GARCIA GLUC MNTR 9 [facility] DEV INC INC CLEARED FDA SPEC HOME USE RADIOLOGI 09826 [facility] GARCIA C 9 [facility] EXAMINATI INC INC ON CHEST SINGLE VIEW FRONTAL ECG 71039 [facility] GARCIA ROUTINE 9 [facility] ECG INC INC W/LEAST 12 LDS TRCG ONLY W/O I&R BLOOD 48948 [facility] GARCIA COUNT 9 [facility] COMPLETE INC INC AUTO&[place] [address] RADHA GARCIA TROPONIN 9 [facility]OS[facility] QUANTITAT INC INC COLE BASIC 89673 RADHA GARCIA METABOLIC 9 [facility] PANEL INC INC CALCIUM TOTAL CREATINE 93304 RADHA GARCIA KINASE MB 9 [facility] FRACTION INC INC ONLY CREATINE 49986 [facility] GARCIA KINASE 9 [facility] TOTAL INC INC COLLECTIO 87421 RAD[facility] GARCIA N VENOUS 9 [facility] BLOOD INC INC VENIPUNCT URE THERAPEUT 19912 [facility] GARCIA IC 9 [facility]OS[facility] INJECTION INC INC IV PUSH EACH NEW DRUG PRESSURIZ 78645 [facility] GARCIA ED/NONPRE 9 [facility] HOSP SSURIZED INC INC INHALATIO N TREATMENT ECG 85869 [facility]HA LIN ROUTINE 9 ED [facility] W/LEAST PROF SERV 12 LDS I&R ONLY INITIAL 25577 [facility] [place] OBSERVATI 9 [facility] ON INTERNAL [facility] CARE/DAY MED 30 MINUTES THER 11286 [facility] GARCIA PROPH/DX 9 [facility] HOSP NJX IV INC INC PUSH SINGLE/1S T SBST/DRUG HOSPITAL G0378 [facility] GARCIA OBSERVATI 9 [facility] ON INC INC SERVICE PER HOUR THERAPEUT 96539 CARLOS ARTEAGA IC 9 MEDICAL VIRAL PROPHYLAC GROUP TIC/DX INJECTION SUBQ/IM RADIOLOGI [address] C EXAM [address] VIEWS FRONTAL&L ATERAL IIV3 02660 CARLOS ARTEAGA, VACCINE 9 MEDICAL VIRAL SPLIT GROUP VIRUS 0.5 ML DOSAGE IM USE COLLECTIO 22716 CARLOS ARTEAGA N VENOUS 9 MEDICAL VIRAL BLOOD GROUP VENIPUNCT URE COMPREHEN [address] SIVE 9 [facility] METABOLIC PANEL MEDICALCE MEDICALCE NTER NTER BILIRUBIN [address] DIRECT 9 ALEX ALEX MEDICALRAJINDER MEDICALCE NTER NTER ECG 62222 CARLOS ARTEAGA, ROUTINE 9 MEDICAL VIRAL ECG GROUP W/LEAST 12 LDS W/I&[place] [address] THYROID 9 [facility] STIMULATI NG MEDICALCE MEDICALCE HORMONE NTER NTER TSH INJECTION J1040 CARLOS ARTEAGA, 9 MEDICAL VIRAL METHYLPRE GROUP DNISOLONE ACETATE 80 MG ADMINISTR G0008 [facility] ATION OF 9 MEDICAL VIRAL INFLUENZA GROUP VIRUS VACCINE ELECTRIC E0215 DIABETES DIABETES HEAT PAD 9 CARE CLUB CARE CLUB [employer] LLC THERAPEUT 91057 CARLOS ARTEAGA, IC 9 MEDICAL VIRAL PROPHYLAC GROUP TIC/DX INJECTION SUBQ/IM PO A4258 [employer] [facility]ERTY 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 SUPPLY FOR LANCET EACH NORMAL A4256 [facility] LOW AND 9 MEDICAL MEDICAL HIGH SUPPLY SUPPLY CALIBRATO R SOLUTION/ CHIPS BLD GLU A4253 [facility] LIBERTY TEST/REAG 9 MEDICAL MEDICAL T STRIPS SUPPLY SUPPLY HOME BLD GLU MON-50 THERAPEUT 60014 Ellis PRECIADO IC 9 MEDICAL J PROPHYLAC GROUP TIC/DX INJECTION SUBQ/IM LIPID [address] PANEL 9 ALEX ALEX MEDICALRAJINDER MEDICALCE NTER NTER HEMOGLOBI [address] N 9 [facility] GLYCOSYLA MARLYN A1C MEDICALCE MEDICALCE NTER NTER INJECTION J1040 Ellis PRECIADO 9 MEDICAL J METHYLPRE GROUP DNISOLONE ACETATE [address] B[address] COUNT 9 [facility] COMPLETE AUTO&AUTO MEDICALCE MEDICAL[place] [address] FREE 9 [facility] THYROXINE [place] [address] THYROID 9 ALEX ALEX STIMULATI NG MEDICALCE MEDICALCE HORMONE NTER NTER TSH BILIRUBIN [address] DIRECT 9 ALEX ALEX MEDICALCE MEDICALCE NTER NTER COMPREHEN [address] SIVE 9 ALEX ALEX METABOLIC PANEL MEDICALCE MEDICALCE NTER NTER CREATINE 74729 RADHA GARCIA KINASE 9 [facility] TOTAL INC INC CREATINE 67709 RADHA GARCIA KINASE MB 9 [facility] FRACTION INC INC ONLY COLLECTIO 49981 RADHA GARCIA N VENOUS 9 [facility] BLOOD INC INC VENIPUNCT URE ECG 94267 RADHA GARCIA ROUTINE 9 [facility] ECG INC INC W/LEAST 12 LDS TRCG ONLY W/O I&R BASIC 38839 RAD[facility] GARCIA METABOLIC 9 [facility] PANEL INC INC CALCIUM TOTAL BLOOD 56303 [facility] GARCIA COUNT 9 [facility] COMPLETE INC INC AUTO&[place] [address] RADHA GARCIA TROPONIN 9 [facility] QUANTITAT INC INC COLE RADIOLOGI 15772 [facility] EXAMINATI IMAGING ON CHEST ASSOCIATE SINGLE S VIEW FRONTAL GLUC BLD 79126 RADHA GARCIA GLUC MNTR 9 [facility] DEV INC INC CLEARED FDA SPEC HOME USE THER 03780 [facility] GARCIA PROPH/DX 9 [facility] NJX IV INC INC PUSH SINGLE/1S T SBST/DRUG ECG 25203 RADHA DRISCOLL ROUTINE 9 [facility] W/LEAST PROF SERV 12 LDS I&R ONLY INITIAL 95601 JOSE ALFREDO HDEZ 9 INDIRA Navarro ON INTERNAL CARE/DAY MED 30 MINUTES THERAPEUT 41899 [facility] GARCIA IC 9 [facility] MEM [...] BOX 8 DIRECT DIRECT OF [address] [facility] PHARMACY PHARMACY PRTBLE E0431 PULMONARY PULMONARY GASEOUS 8 PARTNERS PARTNERS [employer] LLC RENT; FLWMTR HUMIDFR&M ASK O2 CONC 1 E1390 PULMONARY PULMONARY DEL PORT 8 PARTNERS PARTNERS 85%/>02 LLC LLC CONC AT PRS FLW RATE ECG 53542 RADHA GARCIA ROUTINE 8 [facility] ECG INC INC W/LEAST 12 LDS TRCG ONLY W/O I&[place] [address] RADHA GARCIA TROPONIN 8 [facility]OS[facility] QUANTITAT INC INC COLE GLUC BLD 41597 RADHA GARCIA GLUC MNTR 8 [facility] DEV INC INC CLEARED FDA SPEC HOME USE ALBUTEROL J7620 PULMO PULMO TO 2.5 8 DOSE DOSE MG & PHARMACY PHARMACY IPRATROPI UM BROM TO 0.5 MG COLLECTIO 17966 RADHA GARCIA N VENOUS 8 [facility] HOSP BLOOD INC INC VENIPUNCT URE ADMN SET A7005 PULMO PULMO W/SM VOL 8 DOSE DOSE NONFILTR PHARMACY PHARMACY NEBULIZR NON-DISPB L CREATINE 21429 RADHA GARCIA KINASE 8 [facility] TOTAL INC INC CREATINE 60362 RADHA GARCIA KINASE MB 8 [facility] FRACTION INC INC ONLY PHRM Q0514 PULMO PULMO DISPENSIN 8 DOSE DOSE G FEE PHARMACY PHARMACY INHALATIO N RX; PER 90 DAYS ECG 06956 RADHA DRISCOLL, ROUTINE 8 [facility] W/LEAST PROF SERV 12 LDS I&R ONLY OBSERVATI 52090 [facility] JINAMORGAN, ON CARE 8 [facility] A DISCHARGE INTERNAL MED [facility] G0378 RADHA GARCIA OBSERVATI 8 [facility] ON INC INC SERVICE PER HOUR THER 66044 RADHA GARCIA PROPH/DX 8 [facility] NJX EA INC INC SEQL IV PUSH SBST/DRUG ECG 43307 RADHA DRISCOLL ROUTINE 8 [facility] W/LEAST PROF SERV 12 LDS I&R ONLY BLOOD 02133 RADHA GARCIA COUNT 8 [facility] COMPLETE INC INC AUTO&AUTO DIFRNTL WBC RADIOLOGI 90739 RADHA GARCIA C 8 [facility]OS[facility] EXAMINATI INC INC ON CHEST SINGLE VIEW FRONTAL INITIAL 82516 JOSE ALFREDO GONG 8 [facility] ON INTERNAL CARE/DAY MED 30 MINUTES NONINVASI 70703 RADHA GARCIA VE 8 [facility] EAR/PULSE INC INC OXIMETRY SINGLE DETER PRESSURIZ 60913 RADHA GARCIA ED/NONPRE 8 [facility] HOSP SSURIZED INC INC INHALATIO N TREATMENT CREATINE 68240 RADHA GARCIA KINASE 8 [facility] TOTAL INC INC CREATINE 65310 RADHA GARCIA KINASE MB 8 [facility] FRACTION INC INC ONLY INJECTION J2405 RADHA GARCIA 8 [facility]OS[facility] ONDANSETR INC INC ON HCL PER 1 MG COLLECTIO 03693 RADHA GARCIA N VENOUS 8 [facility] BLOOD INC INC VENIPUNCT URE THER 25469 RADHA GARCIA PROPH/DX 8 [facility] NJX IV INC INC PUSH 1ST SBST/DRUG BASIC 01512 RADHA GARCIA METABOLIC 8 [facility] PANEL INC INC CALCIUM TOTAL NATRIURET 43248 RADHA GARCIA IC 8 [facility] [place] [id number] RADHA GARCIA TROPONIN 8 [facility] QUANTITAT INC INC COLE CULTURE 50667 RADHA GARCIA BACTERIAL 8 [facility] BLOOD INC INC AEROBIC W/ID ISOLATES ECG 07733 RADHA GARCIA ROUTINE 8 [facility] ECG INC INC W/LEAST 12 LDS TRCG ONLY W/O I&R GLUC BLD 20061 RADHA GARCIA GLUC MNTR 8 [facility] DEV INC [place] [address] RADHA GARCIA HEAD/BRAI 8 [facility] N W/O INC INC CONTRAST MATERIAL O2 CONC 1 E1390 PULMONARY PULMONARY DEL PORT 8 [employer] 85%/>02 LLC LLC CONC AT PRSC FLW RATE THER 37229 RADHA GARCIA PROPH/DX 8 [facility] NJX INC INC SUBQ/IM PRTBLE E0431 PULMONARY PULMONARY GASEOUS 8 [facility] O[facility] RENT; FLWMTR HUMIDFR&M ASK 3D 96430 RADHA GARCIA RENDERING 8 [facility] W/INTERP INC INC & POST[place] ECG [address] [place], ROUTINE 8 HEART & DIRK Y ECG VASCULAR W/LEAST ASSOC 12 LDS W/I&R ECHO 06616 RADHA GARCIA TRANSTHOR 8 [facility] AC R-T 2D INC INC W/WO M-MODE REC COMP DOP 39355 RADHA GARCIA ECHOCARD 8 [facility] COLOR INC INC FLOW VELOCITY MAPPING DOPPLER 00267 RADHA GARCIA ECHOCARD 8 [facility] PULSE INC INC WAVE W/SPECTRA L DISPLAY ECG 77525 RADHA LIN ROUTINE 8 [facility] F W/LEAST PROF SERV 12 LDS I&R ONLY RADEX 49044 [place], SHOULDER 8 MEDICAL JACKI P COMPLETE IMAGING MINIMUM 2 ASSOCIATE VIEWS S RADIOLOGI 80196 [facility] C 8 MEDICAL MEDICAL EXAMINATI IMAGING IMAGING ON CHEST ASSOCIATE ASSOCIATE SINGLE S S VIEW FRONTAL ECG 13725 RADHA LIN ROUTINE 8 [facility] F W/LEAST PROF SERV 12 LDS I&R ONLY PRTBLE E0431 PULMONARY PULMONARY GASEOUS 8 [facility] RENT; FLWMTR HUMIDFR&M ASK O2 CONC 1 E1390 PULMONARY PULMONARY DEL PORT 8 [employer] PART[employer] 85%/>02 [facility] CONC AT PRSC FLW RATE TUBING A7037 [place] USED WITH 8 HOME HOME POSITIVE MEDICAL MEDICAL AIRWAY EQUIPMENT EQUIPMENT PRESSURE DEVICE THER 21144 RADHA GARCIA PROPH/DX 8 [facility] [...] EQUIPMENT EQUIPMENT W/POS ARWAY PRESS DEVICE CREATINE 27995 RADHA GARCIA KINASE MB 8 [facility] FRACTION INC INC ONLY CREATINE 71164 RADHA GARCIA KINASE 8 [facility] TOTAL INC INC BASIC 70143 RADHA GARCIA METABOLIC 8 [facility] [place] [address] RADHA GARCIA TROPONIN 8 [facility] QUANTITAT INC INC COLE BLOOD 06897 RADHA GARCIA COUNT 8 [facility] COMPLETE INC INC AUTO&AUTO DIFRNTL WBC ECG 40228 RADHA GARCIA ROUTINE 8 [facility] ECG INC INC W/LEAST 12 LDS TRCG ONLY W/O I&R RADIOLOGI 14399 Catr[place] 8 MEDICAL BLAINE EXAMINATI IMAGING ON CHEST ASSOCIATE SINGLE S VIEW FRONTAL IV NFUS 35461 RADHA GARCIA THER 8 [facility] PROPH/[place] [address]394 RADHA GARCIA THER 8 [facility] PROPH/DX INC INC 1ST >1 HR ECG 67542 RADHA LIN ROUTINE 8 ED [facility] W/LEAST PROF SERV 12 LDS I&R ONLY GROUND [id number] ABHISHEK WEISS MILEAGE 8 CO CO PER AMBULANCE AMBULANCE STATUTE SERVICE SERVICE MILE AMBULANCE A0429 ABHISHEK ABHISHEK SERVICE 8 CO CO BLS AMBULANCE AMBULANCE EMERGENCY SERVICE SERVICE TRANSPORT THER 65907 RADHA GARCIA PROPH/DX 8 [facility] NJX EA INC INC SEQL IV [...] METHYLPRE GROUP DNISOLONE ACETATE 80 MG THER 35899 CARLOS MAHARAJSTACEY Ellis PROPH/DX 8 MEDICAL J NJX GROUP SUBQ/IM PRTBLE E0431 PULMONARY PULMONARY GASEOUS 8 [facility] [employer] [facility] RENT; FLWMTR HUMIDFR&M ASK O2 CONC 1 E1390 PULMONARY PULMONARY DEL PORT 8 [facility] PART[facility]ERS 85%/>02 LLC LLC CONC AT PRSC FLW RATE INJECTION [id number] [facility] MEDICAL CEFTRIAXO GROUP GROUP NE SODIUM PER 250 MG THER 41802 [facility] PROPH/DX 8 MEDICAL MEDICAL NJX GROUP GROUP SUBQ/IM BASIC 64039 RADHA GARCIA METABOLIC 8 [facility] PANEL INC INC CALCIUM TOTAL CREATINE 98681 RADHA GARCIA KINASE 8 [facility] TOTAL INC INC CREATINE 23007 RADHA GARCIA KINASE MB 8 [facility] FRACTION INC INC ONLY COLLECTIO 28437 RADHA GARCIA N VENOUS 8 [facility] [place] [address] RADHA GARCIA TROPONIN 8 [facility] QUANTITAT INC INC COLE BLOOD 79532 RADHA GARCIA COUNT 8 [facility] COMPLETE INC INC AUTO&AUTO DIFRNTL WBC ECG 66975 RADHA GARCIA ROUTINE 8 [facility] ECG INC INC W/LEAST 12 LDS TRCG ONLY W/O I&R GLUC BLD 47101 RADHA GARCIA GLUC MNTR 8 [facility] DEV INC INC CLEARED FDA SPEC HOME USE ECG 83971 RADHA ROD, ROUTINE 8 [facility] W/LEAST PROF SERV 12 LDS I&R ONLY ECG 38998 RADHA GARCIA ROUTINE 8 [facility] ECG INC INC W/LEAST 12 LDS I&R ONLY CPAP 47119 RADHA GARCIA VENTILATI 8 [facility] ON CPAP INC INC INITIATIO N&MGMT GROUND A[address] [facility] AMBULANCE PER SERVICE SERVICE STATUTE MILE INITIAL 74683 [place] JOSE ALFREDO ROD 8 [facility] ON INTERNAL CARE/DAY MED 30 MINUTES THER 13899 RADHA GARCIA PROPH/DX 8 [facility] NJX EA INC INC SEQL IV PUSH SBST/DRUG [facility] [id number] RADHA GARCIA OBSERVATI 8 [facility] ON INC INC SERVICE PER HOUR AMB A0427 MCKAYLA [facility] SERVICE 8 AMBULANCE AMBULANCE ALS SERVICE SERVICE EMERGENCY TRANSPORT LEVEL 1 GLUC BLD 66569 RADHA GARCIA GLUC MNTR 8 [facility] DEV INC INC CLEARED FDA SPEC HOME USE RADIOLOGI 67225 RADHA GARCIA C 8 [facility] EXAMINATI INC INC ON CHEST SINGLE VIEW FRONTAL URNLS DIP 13868 RADHA GARCIA 8 [facility] STICK/TAB INC INC LET REAGENT AUTO MICROSCOP Y ECG 83684 RADHA GARCIA ROUTINE 8 [facility] ECG INC INC W/LEAST 12 LDS TRCG ONLY W/O I&R BLOOD 95296 RADHA GARCIA COUNT 8 [facility] COMPLETE INC INC AUTO&AUTO DIFRNTL WBC SUSCEPTIB 76142 RADHA GARCIA LTY STDY 8 [facility] ANTIMICRB INC INC IAL MICRO/[place] [address] RADHA GARCIA TROPONIN 8 [facility] QUANTITAT INC INC COLE CREATINE 59246 RADHA GARCIA KINASE 8 [facility] TOTAL INC INC CREATINE 84705 RADHA GARCIA KINASE MB 8 [facility] FRACTION INC INC ONLY CULTURE 49430 RADHA RADHA BACTERIAL 8 [facility] INC INC QUANTTATI VE COLONY COUNT URINE BASIC 58452 RADHA GARCIA METABOLIC 8 [facility] PANEL INC INC CALCIUM TOTAL THER 71425 RADHA GARCIA PROPH/DX 8 [facility] NJX IV INC INC PUSH 1ST SBST/DRUG PROTHROMB 88419 RADHA RADHA IN TIME 8 [facility] INC INC PRTBLE E0431 PULMONARY PULMONARY GASEOUS 8 PART[facility]ERS PART[facility] [facility] [facility] RENT; FLWMTR HUMIDFR&M ASK O2 CONC 1 E1390 PULMONARY PULMONARY DEL PORT 8 [facility] 85%/>02 [facility] CONC AT [facility] FLW RATE Encounters Encounter Start End Date Code Location Performer Type Date HOSPITAL ST - OTHER 0 [address] [facility] ACCESS 0 0 [facility] ACCESS 0 0 [facility] OFFICE 87517 NICOLAS HEARD 9 9 MEDICAL VIRAL T VISIT GROUP 25 MINUTES OFFICE 35471 NICOLAS HDEZ 9 9 [facility] T VISIT INTERNAL 25 MED MINUTES EMERGENCY 08764 TOMASZ LOPEZ, DEPT 9 9 EMERGENCY ABDULAZIZ S VISIT SERVICES HIGH SEVERITY& ASSOCIATE THREAT S [facility] RADHA - 9 9 [facility] OUTPATIEN INC T EMERGENCY 10309 RADHA 9 9 [facility] DEPARTMEN INC T VISIT HIGH/URGE NT [facility] 9 9 [facility] OFFICE 91945 [facility] ARTEAGA, OUTPATIEN 9 9 MEDICAL VIRAL T VISIT GROUP 25 MINUTES EMERGENCY 31209 RADHA DEPT 9 9 [facility] VISIT INC HIGH SEVERITY& THREAT [facility] RADHA - 9 9 [facility] OUTPATIEN INC T OFFICE 53254 [facility] CHANDLER OUTPATIEN 9 9 MEDICAL VIRAL T VISIT GROUP [address] - OTHER 9 9 [facility] NTER OFFICE 49547 [facility] OUTPATIEN 9 9 MEDICAL VIRAL T VISIT GROUP [address] [facility] OTHER 9 9 [facility] NTER OFFICE 52200 [facility] BETANCUR OUTPATIEN 9 9 MEDICAL J T VISIT GROUP [address] 9 9 [facility] T VISIT MODERATE SEVERITY CRITICAL ST ACCESS 9 9 [facility] RADHA - 9 9 [facility] OUTPATIEN INC T EMERGENCY 37168 MARGA LOPEZ, DEPT 9 9 [facility] VISIT CORPORATI HIGH ON SEVERITY& THREAT [facility] RADHA - 8 8 [facility] OUTPATIEN INC T EMERGENCY 10749 RADHA 8 8 [facility] DEPARTMEN INC T VISIT HIGH/URGE NT SEVERITY EMERGENCY 53704 MARGA NEWSOME, DEPT 8 8 [place] [facility] VISIT CORPORATI HIGH ON SEVERITY& THREAT [facility] EMERGENCY 57163 MARGA NEWSOME, 8 8 [place] [facility] DEPARTMEN CORPORATI T VISIT ON HIGH/URGE NT SEVERITY EMERGENCY 45106 RADHA 8 8 [facility] DEPARTMEN INC T VISIT LOW/MODER SEVERITY HOSPITAL RADHA - 8 8 [facility] OUTPATIEN INC T OFFICE 90123 MORELIA HACKETTNICOLAS DURAN 8 8 [facility] T VISIT VASCULAR 15 ASSOC MINUTES OFFICE 17752 MORELIA FRENCH CONSULTAT 8 8 [facility] Y ION VASCULAR NEW/ESTAB ASSOC PATIENT 30 MIN HOSPITAL RADHA - 8 8 [facility] OUTPATIEN INC T EMERGENCY 39001 RADHA JIN, 8 8 [facility] T VISIT PROF SERV HIGH/URGE NT SEVERITY EMERGENCY 10116 RADHA DE LA CRUZ, 8 8 [facility] T VISIT PROF SERV LOW/MODER SEVERITY EMERGENCY 80931 RADHA 8 8 [facility] V[facility]/M INOR [facility] RADHA - 8 8 [facility] OUTPATIEN INC T EMERGENCY 76482 RADHA 8 8 [facility] HIGH/URGE NT SEVERITY HOSPITAL RADHA - 8 8 [facility] OUTPATIEN INC T OFFICE 31836 Ellis PRECIADO 8 8 MEDICAL J T VISIT GROUP 25 MINUTES OFFICE 95245 [place] CARLOS VALENZUELA 8 8 MEDICAL MEDICAL T VISIT GROUP GROUP 25 MINUTES EMERGENCY 00073 RADHA DEPT 8 8 [facility] VISIT INC HIGH SEVERITY& THREAT [facility] RADHA - 8 8 [facility] OUTPATIEN INC T
--- NOTE | 2016-11-09 17:44 | RADIOLOGY REPORT PS360 ---
CT CT HEAD WITHOUT CONTRAST CT BONE WINDOWS included ORDERING PHYSICIAN : Darryl Michele MD PATIENT AGE: 71 years GENDER: Female PROCEDURE: Routine axial images headwithout contrast. Brain & bone windows HISTORY: HEADACHE, WORSE EVER COMPARISON: Previous January 2014 CT head without contrast FINDINGS: No acute intracranial findings. No hemorrhage. . Basal cisterns appear clear No mass effect or mass lesion. No subdural nor extra-axial collection. Ventricles normal size and stable. Wilde & white matter patterns satisfactory. The posterior fossa appear satisfactory and unremarkable. On close inspection I would note a generous basilar tip which measures 4 mm AP x 5 mm transverse this this may merely reflect volume averaging from tortuosity but if patient has a recurrent severe headaches a follow-up ethmoid sinuses with upper normal mucosal thickening. Scant mucosal thickening wall right sphenoid sinus top of maxillary sinuses unremarkable absent frontal sinuses. Right Mastoid air cells clear and unremarkable.. Left mastoid with stable opacification air cells left mastoid tip reflecting stable mastoid effusion here., . Middle ear & IACs are unremarkable. IMPRESSION: No acute intracranial findings. No hemorrhage. No mass. Basal cisterns appear clear. Would note a generous basilar tip measuring 4 x 5 mm on today's image. This may may volume averaging from tortuosity but but if there is a severe or history of severe recurrent headaches consider CTA to further evaluate.
--- NOTE | 2016-11-09 18:52 | Emergency Room Report ---
History of Present Illness Time Seen by 1711 Presenting Problem in Triage Pt arrived:Wheelchair Presenting Problem:MIGRAINE Onset of symptoms date/time:11/08/16 or onset unknown for: Treatment Prior to Arrival: [employer] Provided by: Sepsis Risk Assessment: Temp: 98.4 B/P: 184/68 MAP: 122 Pulse: 59 Resp: 18 Recent fever? N Clinical Suspician of Infection? N Mental Status: 1 - Regular (Normal Baseline) Sepsis Risk:Low Sepsis Risk Have you (or family members/close friends) recently traveled outside the [place]? N If Yes, where/when: Have you had exposure to infectious disease within the past month? N TB? Other? Specify: Source patient, RN notes reviewed, family, RN/MD Exam Limitations no limitations Comment This is a 71-year-old female patient presented emergency room with a migraine headache located in the RIGHT retro-orbital area, onset 3 days prior to arrival. Patient has taken various [id number] pain remedies, without any resolution. Patient is nauseated and has been vomiting over the past 3 days, as well. Patient denies any fever, any recent travel or exposure to sick contacts. Patient stated that this is the worst headache ever. She does have a history of migraines, however, in the past. ALLERGIES Coded Allergies: No Known Allergies (11/09/16) Home Medications Active Scripts ISOSORBIDE MONONITRATE (IMDUR 30MG) 30 MG PO DAILY #30 TAB Prov: 08/12/15 Reported Medications Gabapentin 300 MG PO BID Sucralfate (Carafate) 1 GM PO DAILY #120 Metoprolol Tartrate (Metoprolol) 50 MG PO BID Simvastatin (Simvastatin 40MG Tab) 40 MG PO DAILY Nitroglycerin (Nitrostat 0.4MG (1/150 Gr) Tabs #25) 0.4 MG SL PRN OMEPRAZOLE MAGNESIUM (Prilosec 20MG) 40 MG PO BID Levothyroxine Sodium (Levothyroxine 0.15MG) 0.2 MCG PO DAILY Clotrimazole (Lotrimin) 0.5 GM TP BID PROMETHAZINE HCL (Promethazine 25mg Tab) 1 TAB PO Q4-6HPRN Docusate Sodium (Colace 100MG Cap) 1 TAB PO BID Furosemide (Lasix 40MG) 40 MG PO DAILY DULOXETINE HCL (Cymbalta 60MG) 1 TAB PO DAILY Aluminum & Magnesium Hydroxide (Maalox 150ML Susp) 15 ML PO Q6HPRN Ibandronate Sodium (Boniva) 150 MG PO Ferrous Sulfate (Iron Tablet) 1 TAB PO BID Insulin Glargine (Lantus Insulin Vial) 52 UNITS SC DAILY Allopurinol 300 MG PO DAILY #60 TAB OXYCODONE HCL/ACETAMINOPHEN (Oxycodone-Acetaminophen 5-325) 1 TAB PO Q4HP PRN PAIN #20 Metoclopramide Hydrochloride (Metoclopramide HCl) 5 MG PO ACHS #90 [veltassa] 8.4 GM OR DAILY Insulin Aspart (Novolog) (Insulin Aspart Flexpen 3ML) 0 SC PRN PRN DIABETES #45 History Medical History General CAD? No Angina: Yes [place]: Yes Hypertension? Yes Hyperlipidemia? Yes CHF? No DVT? No PE? No COPD? No Asthma? Yes Anemia? No GERD? No Gastric ulcers? No GI Bleed? No Hernia? Yes Thyroid Problems? Yes Hypothyroidism? Yes CVA? Yes Seizures? No Diabetes? Yes Insulin Dependent: Yes Insulin Pump: No Home FSBS? Yes Renal Insuffiency? No End Stage Renal Disease? No UTI? Yes Stones? No BPH? No GB Disease: Yes Nephritic Syndrome? No Asplenia? No Hepatitis? No Sickle Cell Disease? No Arthritis? No Migraines? No Cataracts? No Glaucoma? Yes MRSA? No HIV? No TB? No Anxiety? No Depression? 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 Additional hx: SLEEP APNEA Immunization Hx DT/Tetanus UNKNOWN Flu THIS YR Pneumonia Received In Past Surgical Hx Previous Surgery?Y CHOLECYSTECTOMY 2 HYSTERECTOMY NECK SURGERY R KNEE CARDIAC CATH DRAINED BREAST [R] Family History Family Hx Diabetes Yes CAD Yes Hypertension Yes Hyperlipidemia Yes Cancer No TB Yes Social History Smoking Hx Smoker: Former Smoker Tobacco: No Alcohol Alcohol: No Review of Systems All Other Systems Reviewed and Negative Psychiatric/Neurological headache Physical Exam Vital Signs Vital Signs Date Time Temp Pulse Resp B/P Pulse O2 O2 Flow FiO2 Ox Delivery Rate 11/09 1808 59 18 184/68 94 11/09 1752 18 11/09 1711 98.4 65 22 188/89 92 General Appearance normal appearance, WD/WN, moderate distress Eye Exam - bilateral eye normal exam, bilateral eye PERRL, bilateral eye EOMI Neck normal inspection, non-tender, supple, full range of motion Respiratory Status Yes: trachea midline, chest symmetrical, non tender chest. No: respiratory distress. Lung Sounds bilateral: normal breath sounds, lungs clear. 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 No Comment On reevaluation patient appears medically stable, clinically improving, with headache more tolerable at this time point. Advised patient to follow-up with PCP in the morning if not better. Results/Orders Current Medication Orders Sig/Quita Start time Last Medication Dose Route Stop Time Status Admin Hydromorphone HCl 1 MG ONCE ONE 11/09 1900 AC IV 11/09 1901 Ketorolac 30 MG ONCE ONE 11/09 1900 AC Tromethamine IV 11/09 1901 Ondansetron HCl 0 .STK-MED ONE 11/09 1725 DC .ROUTE Morphine Sulfate 0 .STK-MED ONE 11/09 1724 DC .ROUTE Morphine Sulfate 4 MG ONCE ONE 11/09 1715 DC 11/09 IV 11/09 1716 1752 Ondansetron HCl 4 MG ONCE ONE 11/09 1715 DC 11/09 IV 11/09 1716 1752 Sodium Chloride 10 ML PRN PRN 11/09 1715 AC IV 11/10 171 Orders Procedure Date/time Status DIET-NOTHING BY MOUTH 11/[address] HEAD REQ 11/10 1711 Complete IV SALINE LOCK 11/09 1710 Active XRAY/CT/US XRAY/CT/US CT head CT interpretation by discussed w/radiologist CT Results abnormal Comment please see the radiologist's report Departure Departure Time of Disposition 1850 Disposition DC Home or Self Care(routine) Clinical Impression Primary Impression: Migraine Qualifiers: Migraine type: without aura Status migrainosus presence: without status migrainosus Intractability: not intractable Qualified Code: G43.009 - Migraine without aura, not intractable, without status migrainosus Condition STABLE Referrals DENSONKAMARI (Family): Tomorrow-Call Office Patient Instructions DI for Migraine Additional Instructions If not better please follow-up with your family physician in the morning. Discharge Counseling Counseled pt/family regarding diagnosis, test results, medications/RX, home care, follow up needs Comment If not better please follow-up with your family physician in the morning. ED Critical Care Critical Care No at 4084
[2016-11-09 19:10] VITALS: BP 151/70
== END 2016-11-09 19:12 | disposition home or self-care (01) ==
LOC: ER 17:05
DX: G43.009 Migraine without aura, not intractable, without status migrainosus (principal); I10 Essential (primary) hypertension; E11.8 Type 2 diabetes mellitus with unspecified complications; Z79.4 Long term (current) use of insulin
CPT/HCPCS: J2405